=== PATIENT | female | born 1945 | race Caucasian/White ===

== ENCOUNTER → 2018-02-09 14:58 | Outpatient (CLI) | payer OTHER, SELFPAY ==
[2018-02-09 16:13] LABS: Hemoglobin A1C% w Est Avg Glu 6.8 % (4.0-6.0)
== END ==
PROVIDERS: PCP Internal Medicine; Visit Provider Internal Medicine
DX: E11.9 Type 2 diabetes mellitus without complications (principal)
CPT/HCPCS: 36415; 83036

== ENCOUNTER → 2018-05-16 07:50 | Outpatient (CLI) | payer OTHER, SELFPAY ==
[2018-05-16 08:28] LABS: Hemoglobin A1C% w Est Avg Glu 7.1 % (4.0-6.0)
[2018-05-16 08:46] LABS: BUN Creatinine Ratio 26.7 (6-22); Blood Urea Nitrogen 32 mg/dL (7-17); Calcium 9.3 mg/dL (8.4-10.2); Carbon Dioxide 35 mmol/L (22-32); Chloride 102 mmol/L (98-107); Estimated Glomerular Filt Rate 43.9 mL/min (>60); Glucose 133 mg/dL (80-110); HEMOLYSIS < 15 (0-50); Potassium 3.7 mmol/L (3.4-5.1); Sodium 144 mmol/L (137-145)
== END ==
PROVIDERS: PCP Internal Medicine; Visit Provider Internal Medicine
DX: E11.9 Type 2 diabetes mellitus without complications (principal)
CPT/HCPCS: 36415; 80048; 83036

== ENCOUNTER → 2018-08-21 08:26 | Outpatient (CLI) | payer OTHER, SELFPAY ==
--- NOTE | 2018-08-21 | DI.RAD.S_ITS ---
PROCEDURE: XR SHOULDER LT MIN 2V INDICATIONS: Primary osteoarthritis, left shoulder TECHNIQUE: 3 views of the shoulder were acquired. COMPAR[place] [facility] [place]IL[place], 03/11/2008, 11:19. FINDINGS: Bones: No fractures or dislocations. No suspicious bony lesions. Visualized ribs appear intact. Borderline widening of the acromio clavicular joint space, age-indeterminate Mild left glenohumeral and acromioclavicular joint degeneration Soft tissues: No suspicious soft tissue calcifications. IMPRESSION: Mild left shoulder joint degeneration, grossly unchanged since 03/11/08. Borderline widened appearance of the acromioclavicular joint, technically age-indeterminate finding in the absence of more recent prior studies. Dictated by: Sumit Burt M.D. on 08/21/2018 at 9:16 Approved by: Sumit Burt M.D. on 08/21/2018 at 9:23
== END ==
PROVIDERS: PCP Internal Medicine; Visit Provider Physician Assistant
DX: M19.012 Primary osteoarthritis, left shoulder (principal)
CPT/HCPCS: 73030

== ENCOUNTER → 2018-08-28 07:32 | Outpatient (CLI) | payer OTHER, SELFPAY ==
[2018-08-28 08:54] LABS: Add Manual Diff / Slide Review NO; Basophils Percent Auto 0.8 % (0-2); Eosinophils Percent Auto 6.2 % (2-4); Hematocrit 37.6 % (36-46); Hemoglobin 12.2 g/dL (12.0-16.0); Lymphocytes Percent Auto 36.9 % (25-40); Mean Corpuscular HGB Conc 32.3 % (30-36); Mean Corpuscular Hemoglobin 28.7 PG (26-34); Mean Corpuscular Volume 88.9 fL (80-100); Monocytes Percent Auto 5.2 % (3-14); Neutrophils Absolute Auto 4900 /uL (1500-7000); Neutrophils Percent Auto 50.9 % (50-75); Platelet Count 369 X10^3/uL (150-400); Red Blood Cell Count 4.23 X10^6/uL (4.0-5.2); Red Cell Distribution Width 15.5 % (11.6-14.8); White Blood Cell Count 9.6 X10^3/uL (4.5-11.0)
[2018-08-28 09:08] LABS: Alanine Aminotransferase 26 IU/L (9-52); Albumin 4.1 g/dL (3.5-5.0); Albumin Globulin Ratio 1.2 (1.0-2.8); Alkaline Phosphatase 99 U/L (38-126); Aspartate Aminotransferase 25 IU/L (14-36); BUN Creatinine Ratio 26.2 (6-22); Bilirubin Total 0.4 mg/dL (0.2-1.3); Blood Urea Nitrogen 34 mg/dL (7-17); Calcium 9.6 mg/dL (8.4-10.2); Carbon Dioxide 31 mmol/L (22-32); Chloride 99 mmol/L (98-107); Cholesterol 158 mg/dL (140-199); Globulin 3.4 g/dL (1.7-4.1); Glucose 120 mg/dL (80-110); HDL Cholesterol 49 mg/dL (40-60); HEMOLYSIS < 15 (0-50); LDL Cholesterol Calculated 78 mg/dL (<100); Potassium 3.6 mmol/L (3.4-5.1); Sodium 140 mmol/L (137-145); Total Protein 7.5 g/dL (6.3-8.2); Triglycerides 157 mg/dL (35-150)
[2018-08-28 09:19] LABS: Hemoglobin A1C% w Est Avg Glu 7.2 % (4.0-6.0)
== END ==
PROVIDERS: PCP Physician Assistant; Visit Provider Physician Assistant
DX: E11.9 Type 2 diabetes mellitus without complications (principal); E78.5 Hyperlipidemia, unspecified
CPT/HCPCS: 36415; 80053; 80061; 83036; 85025

== ENCOUNTER 2020-05-09 18:38 | Emergency (ER) | payer OTHER, SELFPAY ==
[2020-05-09 18:44] VITALS: BP 146/65; PULSE 69; RESP 12; TEMP 36.7; O2SAT 97
--- NOTE | 2020-05-09 20:20 | PC.NURSE ---
Pt reports has history of vernon fundoplication, States unable to throw up food. States when she throws up, only throws up mucous.
[2020-05-09 21:45] VITALS: BP 132/63; PULSE 66; RESP 18; O2SAT 97
--- NOTE | 2020-05-09 21:52 | ED_ITS ---
HPI - Nausea/Vomiting/Diarrhea General Chief complaint: Nausea/Vomiting/Diarrhea Stated complaint: nausea, vomiting, fatigued Time Seen by Provider: 05/09/20 20:35 Source: patient and family Mode of arrival: Wheelchair History of Present Illness HPI Narrative: Patient here with daughter. Complaints 2 months of epigastric sternal discomfort with nausea and mucus emesis. Patient with history of Joshua procedure 15 years ago. Recent weight loss occurred in the past 3 or 4 months. Unable to tolerate p.o. as well as she used to in the past 2 months. Discomfort is burning pain. Worse with laying flat or eating. Denies any exertional chest pain or dyspnea. Patient is a retired geriatric nurse. She does not feel this is her heart causing the problem. 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 Her surgeon has , no current surgeon for regular visits. Primary care is in [place]. Patient has been taking daughters Zofran ODT with significant relief of nausea in the past 6 days. No urinary complaints. Patient is not on any acid reducers/antacid. Followed by Nephrology and [facility] Related Data Home Medications Medication Instructions Recorded Confirmed ALBUTEROL SULFATE (Ventolin / 2 puff INH Q4H PRN #0 09/01/10 Proventil) POTASSIUM CHLORIDE (K-Dur) 20 meq PO BID #0 09/01/10 [CO-Q-1O] 100 mg PO Q DAY #0 09/01/10 [LIDEX OINTMENT] 0.05 % TOPICAL BIDP #0 09/01/10 ALLOPURINOL 300 mg PO BID #0 10/29/10 CA PANTOTHENATE/FOLIC ACID/VIT 1 tab PO QDAY #0 10/07/11 (MULTIVITAMIN) VITAMIN D (Vitamin D3) 1,000 unit PO BID #0 10/07/11 [PREVASTATIN] 20 mg PO Q DAY #0 10/07/11 estradiol [Estrace] 1 mg PO Q DAY #0 10/07/11 furosemide 160 mg PO BIDD #0 10/07/11 insulin aspart U-100 [Novolog 8 unit #0 10/07/11 U-100 Insulin aspart] insulin detemir U-100 [Levemir 0 unit SQ BID #0 10/07/11 U-100 Insulin] lorazepam 0.5 mg PO BID #0 10/07/11 valsartan [Diovan] 320 mg PO Q DAY #0 10/07/11 metolazone 10 mg PO PRN #0 11/03/11 omeprazole 40 mg PO BID #0 11/03/11 Previous Rx's Medication Instructions Recorded [Calcium Citrate] 630 mg PO Q DAY #0 09/01/10 Allergies Allergy/AdvReac Type Severity Reaction Status Date / Time bacitracin Allergy Mild RASH Unverified 05/09/20 18:48 [From NEOSPORIN BLISTERS ([id number])] chlorthalidone Allergy Mild RED RASH Unverified 05/09/20 18:48 [CHLORTHALIDONE] hydroxyzine [HYDROXYZINE] Allergy Mild RESP ARREST Unverified 05/09/20 18:48 iodine [IODINE] Allergy Mild IV Unverified 05/09/20 18:48 CONTRAST-RESP ARREST neomycin Allergy Mild RASH Unverified 05/09/20 18:48 [From NEOSPORIN BLISTERS ([id number])] polymyxin B Allergy Mild RASH Unverified 05/09/20 18:48 [From NEOSPORIN BLISTERS ([id number])] PAPER TAPE Allergy Mild BLISTERS Uncoded 05/09/20 18:48 RASH Review of Systems Review of Systems Narrative: GENERAL: Denies chills, fatigue, malaise, fever, sweats. HEENT: Denies sinus pain, ear pain, sore throat, difficulty swallowing, dizziness. RESPIRATORY: Denies dyspnea, cough, wheezing, hemoptysis, sputum. CARDIOVASCULAR: Denies chest pain, palpitations, orthopnea, edema, GASTROINTESTINAL: Complains of nausea, vomiting, abdominal pain, denies diarrhea, constipation, melena. : Denies dysuria, frequency, incontinence, hematuria, urinary retention. MUSCULOSKELETAL: denies weakness, joint pain, or bony pain SKIN: Denies rash, skin lesions NEUROLOGIC: Denies weakness, headache, numbness, change in speech, confusion, seizures, incoordination. PSYCHIATRIC: No concerning psychosocial issues. ROS Unobtainable: All systems reviewed & are unremarkable except as noted in HPI and below Patient History Social History Smoking Status: Former smoker Smoking Status: Former smoker Substance Use Type: marijuana Exam Narrative Exam Narrative: GENERAL: patient appears stated age. Well-nourished, well- developed patient, in no distress, not toxic HEAD: Atraumatic. Normocephalic. EYES: Pupils equal round and reactive. Extraocular motions intact. No scleral icterus. No injection or drainage. ENT: Nose without bleeding, purulent drainage. Throat without erythema, tonsillar hypertrophy or exudate. Airway patent. NECK: Trachea midline. Non tender CARDIOVASCULAR: Regular rate and rhythm without murmurs, gallops, or rubs. RESPIRATORY: Clear to auscultation. Breath sounds equal bilaterally. No wheezes, rales, or rhonchi. GASTROINTESTINAL: Abdomen soft, mild tenderness epigastric region, no peritoneal signs, bowel sounds present, nondistended. EXTREMITIES: No edema or joint tenderness. BACK: Nontender without deformity or crepitance. No flank tenderness. NEURO: AOx4. SKIN: No rash or erythema of visible areas PSYCH: Not anxious, is cooperative Initial Vital Signs Initial Vital Signs: Vital Signs Temperature 98.1 F 05/09/20 18:44 Pulse Rate 69 05/09/20 18:44 Respiratory Rate 12 05/09/20 18:44 Blood Pressure 146/65 H 05/09/20 18:44 Pulse Oximetry 97 05/09/20 18:44 Course Orders Ordered: ED Orders 05/09/20 22:03 CT abdomen pelvis wo con Stat 05/09/20 22:30 Complete Blood Count AUTO DIFF Stat Comprehensive Metabolic Panel Stat Lipase Stat 05/10/20 00:41 Troponin & CK Cardiac Panel Stat EKG-12 Lead Stat Discontinued Medications Sodium Chloride (Normal Saline 0.9%) 1,000 mls @ 1,000 mls/hr IV BOLUS ONE Stop: 05/09/20 22:54 Last Infusion: 05/09/20 23:48 Dose: 0 mls/hr Documented by: Admin: 05/09/20 22:51 Dose: 1,000 mls/hr Documented by: JAY Calcium Gluconate 4.65 meq/ (Sodium Chloride) 60 mls @ 180 mls/hr IV NOW ONE Stop: 05/10/20 00:59 Last Infusion: 05/10/20 01:40 Dose: 0 mls/hr Documented by: Admin: 05/10/20 00:57 Dose: 180 mls/hr Documented by: JAY Ondansetron HCl (Zofran) 4 mg IV NOW ONE Stop: 05/09/20 21:56 Last Admin: 05/09/20 22:51 Dose: 4 mg Documented by: JAY Pantoprazole Sodium (Protonix) 40 mg IV NOW ONE Stop: 05/09/20 22:08 Last Admin: 05/09/20 22:50 Dose: 40 mg Documented by: JAY Reevaluation(s) Reevaluation #1: Spoke with patient and daughter. They agree with admission/transfer to [facility] for continuity of care with her concrete puddler dr charlene berger Time: 02:29 Consultations Consultation #1: Spoke with Dr. Quick, hospitalist [facility], will admit Time: 02:30 Vital Signs Vital signs: Vital Signs - 8 hr 05/09/20 21:45 05/09/20 23:48 05/10/20 00:54 Pulse Rate 66 65 71 Respiratory Rate 18 18 Blood Pressure 132/63 121/53 L Pulse Oximetry 97 95 94 05/10/20 01:01 05/10/20 01:02 05/10/20 01:30 Pulse Rate 79 78 70 Respiratory Rate 14 10 L Blood Pressure 130/60 122/58 L Pulse Oximetry 96 96 95 05/10/20 02:00 05/10/20 02:30 Pulse Rate 71 68 Respiratory Rate 17 15 Blood Pressure 113/52 L 117/54 L Pulse Oximetry 96 95 MDM - Nausea/Vomiting/Diarrhea Differential Diagnosis Differential diagnosis: Likely dehydration and other (Bowel obstruction /gastritis/acute renal injury/failure) Lab Data Attestation: I reviewed the patient's lab results. Result diagrams: 05/09/20 22:30 05/09/20 22:30 Labs: Lab Results 05/09/20 05/09/20 05/09/20 Range/Units 22:30 22:30 22:30 WBC 9.9 (4.5-11.0) X10^3/uL RBC 3.52 L (4.0-5.2) X10^6/uL Hgb 10.6 L (12.0-16.0) g/dL Hct 31.7 L (36-46) % MCV 89.8 (80-100) fL MCH 30.2 (26-34) PG MCHC 33.6 (30-36) % RDW 14.5 (11.6-14.8) % Plt Count 335 (150-400) X10^3/uL Neut % (Auto) 68.3 (50-75) % Lymph % (Auto) 23.7 L (25-40) % [place] % (Auto) 5.2 (3-14) % Eos % (Auto) 1.8 L (2-4) % Baso % (Auto) 1.0 (0-2) % Neut # (Auto) 6700 (7268-2623) /uL Lymph # (Auto) 2300 (5629-4387) /uL [place] # (Auto) 500 (0-900) /uL Eos # (Auto) 200 (0-450) /uL Baso # (Auto) 100 (0-100) /uL Sodium 126 L (137-145) mmol/L Potassium 6.3 H* (3.4-5.1) mmol/L Chloride 96 L (98-107) mmol/L Carbon Dioxide 16 L (22-32) mmol/L BUN 157 H* (7-17) mg/dL Creatinine 4.84 H (0.52-1.04) mg/dL Estimated GFR 8.7 L (>60) mL/min BUN/Creatinine Ratio 32.4 H (6-22) Glucose 103 (80-110) mg/dL Calcium 10.4 H (8.4-10.2) mg/dL Total Bilirubin 0.4 (0.2-1.3) mg/dL AST 26 (14-36) IU/L ALT 15 (<35) IU/L Alkaline Phosphatase 65 (38-126) U/L Total Creatine Kinase < 20 L (30-135) U/L CK-MB (CK-2) TNP CK-MB (CK-2) Rel Index TNP Troponin I < 0.012 (0.01-0.034) ng/mL Total Protein 7.8 (6.3-8.2) g/dL Albumin 4.3 (3.5-5.0) g/dL Globulin 3.5 (1.7-4.1) g/dL Albumin/Globulin Ratio 1.2 (1.0-2.8) Lipase 296 (23-300) U/L Urine Dip Bedside Urine Glucose Negative Bedside Urine Bilirubin - Negative Bedside Urine Ketone - Negative Urine Specific [place] 1.015 Bedside Urine Occult Blood - Negative Bedside Urine pH 5.5 Bedside Urine Protein - Negative Bedside Urine Urobilinogen - Negative Bedside Urine Nitrite - Negative Bedside Urine Leukocytes - Negative Esterase Imaging Data CT scan - abdomen/pelvis: Radiologist's Impression: CT scan shows no acute intra-abdominal or pelvic findings. No appendicitis. No bowel obstruction. No renal obstruction. Right lower lobe 5 mm pulmonary nodule. Consider 12 month follow-up ECG Data Attestation: I personally reviewed and interpreted this ECG as follows: Interpretation: Normal sinus rhythm. Normal EKG. Ventricular rate 73. No ST elevation or depression or peaked T-waves MDM Narrative Medical decision making narrative: Pain is reproducible and clinically acid reflux as gastritis/esophagitis. No concrete puddler surface at this facility. Will need to transfer to [facility]. Patient nephrology does go to [place]. Significant changes in renal function/hyperkalemia as well as increased BUN and creatinine and decrease in GFR, no insulin at this time for hyperkalemia, will try IV fluids and hydration and recheck potassium. Patient has no arrhythmia. No peaked T-waves on EKG. Discharge Plan Departure Patient Disposition: [facility] Clinical Impression: Acute hyperkalemia Acute renal failure Qualifiers: Acute renal failure type: unspecified Qualified Code(s): N17.9 - Acute kidney failure, unspecified Discharge Date/Time: 05/10/20 03:35 Prescriptions: No Action [Calcium Citrate] 630 mg PO Q DAY Qty: 0 RF: 0 [CO-Q-1O] 100 mg PO Q DAY Qty: 0 RF: 0 [LIDEX OINTMENT] 0.05 % Topical BIDP Qty: 0 RF: 0 POTASSIUM CHLORIDE (K-Dur) 20 meq PO BID Qty: 0 RF: 0 ALBUTEROL SULFATE (Ventolin / Proventil) 2 puff INH Q4H PRN Qty: 0 RF: 0 ALLOPURINOL 300 mg PO BID Qty: 0 RF: 0 insulin detemir U-100 [Levemir U-100 Insulin] 100 UNIT/1 ML solution 0 unit SQ BID Qty: 0 RF: 0 insulin aspart U-100 [Novolog U-100 Insulin aspart] 100 UNIT/1 ML solution 8 unit Qty: 0 RF: 0 furosemide 80 MG tablet 160 mg PO BIDD Qty: 0 RF: 0 [PREVASTATIN] 20 mg PO Q DAY Qty: 0 RF: 0 valsartan [Diovan] 80 MG tablet 320 mg PO Q DAY Qty: 0 RF: 0 estradiol [Estrace] 1 MG tablet 1 mg PO Q DAY Qty: 0 RF: 0 lorazepam 0.5 MG tablet 0.5 mg PO BID Qty: 0 RF: 0 VITAMIN D (Vitamin D3) 1,000 unit PO BID Qty: 0 RF: 0 CA PANTOTHENATE/FOLIC ACID/VIT (MULTIVITAMIN) 1 tab PO QDAY Qty: 0 RF: 0 omeprazole 40 MG capsule,delayed release(DR/EC) 40 mg PO BID Qty: 0 RF: 0 metolazone 10 MG tablet 10 mg PO PRN Qty: 0 RF: 0 Referrals: Lynnette Nichole PA-C [Primary Care Provider] -
--- NOTE | 2020-05-09 22:03 | DI.CT.S_ITS ---
PROCEDURE: CT ABDOMEN PELVIS WO CON INDICATIONS: Epigastric pain TECHNIQUE: After the administration of oral contrast, 5 mm thick sections acquired from the diaphragms to the symphysis. 5 mm coronal and sagittal reformats were performed. For radiation dose reduction, the following was used: automated exposure control, adjustment of mA and/or kV according to patient size. COMPARISON: [facility], CT, ABDOMEN/PELVIS WITHOUT CONTRAST, 10/30/2010, 9:24. FINDINGS: Image quality: Excellent. ABDOMEN: Lung bases: Approximately 4 mm pulmonary nodule in the peripheral right lower lobe on series 3, image 13 is unchanged from 2011 comparison. Lung bases are otherwise clear. Heart size is normal. Solid organs: Liver is normal in size. There are simple cysts adjacent to the liver which are unchanged in size from 2011 exam. Gallbladder is unremarkable. Pancreas is normal in unenhanced appearance. Spleen is normal in size. No adrenal nodules. Both kidneys are normal in size, without hydronephrosis or nephrolithiasis. Peritoneum and bowel: Bowel loops demonstrate normal wall thickness and caliber. No free fluid or air. Appendix is normal. Nodes and vessels: No retroperitoneal or mesenteric adenopathy by size criteria. Aorta and inferior vena cava are normal in size. Miscellaneous: No ventral hernias. PELVIS: Genitourinary: Bladder wall thickness is normal. Miscellaneous: No inguinal hernias or adenopathy. Bones: No suspicious bony lesions. No vertebral body compression fractures. IMPRESSION: No acute finding. No significant change from preliminary report. Dictated by: Jose Antonio Sheppard M.D. on 05/10/2020 at 7:02 Approved by: Jose Antonio Sheppard M.D. on 05/10/2020 at 7:04
[2020-05-09 22:36] LABS: Add Manual Diff / Slide Review NO; Basophils Absolute Auto 100 /uL (0-100); Eosinophils Absolute Auto 200 /uL (0-450); Eosinophils Percent Auto 1.8 % (2-4); Hematocrit 31.7 % (36-46); Hemoglobin 10.6 g/dL (12.0-16.0); Lymphocytes Absolute Auto 2300 /uL (1100-4500); Lymphocytes Percent Auto 23.7 % (25-40); Mean Corpuscular HGB Conc 33.6 % (30-36); Mean Corpuscular Hemoglobin 30.2 PG (26-34); Mean Corpuscular Volume 89.8 fL (80-100); Monocytes Absolute Auto 500 /uL (0-900); Monocytes Percent Auto 5.2 % (3-14); Neutrophils Absolute Auto 6700 /uL (1500-7000); Neutrophils Percent Auto 68.3 % (50-75); Platelet Count 335 X10^3/uL (150-400); Red Blood Cell Count 3.52 X10^6/uL (4.0-5.2); Red Cell Distribution Width 14.5 % (11.6-14.8); White Blood Cell Count 9.9 X10^3/uL (4.5-11.0)
[2020-05-09 22:48] LABS: Alanine Aminotransferase 15 IU/L (<35); Albumin 4.3 g/dL (3.5-5.0); Albumin Globulin Ratio 1.2 (1.0-2.8); Alkaline Phosphatase 65 U/L (38-126); Aspartate Aminotransferase 26 IU/L (14-36); Bilirubin Total 0.4 mg/dL (0.2-1.3); Calcium 10.4 mg/dL (8.4-10.2); Carbon Dioxide 16 mmol/L (22-32); Chloride 96 mmol/L (98-107); Estimated Glomerular Filt Rate 8.7 mL/min (>60); Globulin 3.5 g/dL (1.7-4.1); Glucose 103 mg/dL (80-110); HEMOLYSIS < 15 (0-50); Lipase 296 U/L (23-300); Sodium 126 mmol/L (137-145); Total Protein 7.8 g/dL (6.3-8.2)
[2020-05-09] MEDS: PANTOPRAZOLE 40 MG VIAL IV (22:50)
[2020-05-09] MEDS: SODIUM CHLORIDE 0.9% 1,000 ML 1000 ML IV (22:51)
[2020-05-09] MEDS: ONDANSETRON 4 MG/2 ML INJ IV (22:51)
[2020-05-09 22:56] LABS: BUN Creatinine Ratio 32.4 (6-22)
[2020-05-09 22:59] LABS: Blood Urea Nitrogen 157 mg/dL (7-17); Potassium 6.3 mmol/L (3.4-5.1)
[2020-05-09 23:48] VITALS: BP 121/53; PULSE 65; RESP 18; O2SAT 95
[2020-05-10 00:54] VITALS: PULSE 71; O2SAT 94
[2020-05-10 00:55] LABS: Creatine Kinase < 20 U/L (30-135)
[2020-05-10] MEDS: CALCIUM GLUCONATE 4.65 MEQ in SODIUM CHLORIDE 0.9% 50 ML 180 ML IV (00:57)
[2020-05-10 01:01] VITALS: PULSE 79; O2SAT 96
[2020-05-10 01:02] VITALS: BP 130/60; PULSE 78; RESP 14; O2SAT 96
[2020-05-10 01:08] LABS: Troponin I < 0.012 ng/mL (0.01-0.034)
[2020-05-10 01:30] VITALS: BP 122/58; PULSE 70; RESP 10; O2SAT 95
[2020-05-10 02:00] VITALS: BP 113/52; PULSE 71; RESP 17; O2SAT 96
[2020-05-10 02:30] VITALS: BP 117/54; PULSE 68; RESP 15; O2SAT 95
== END 2020-05-10 03:35 | disposition short-term general hospital (02) ==
PROVIDERS: Emergency Provider Emergency Medicine; PCP Physician Assistant
DX: E87.5 Hyperkalemia (principal); N17.9 Acute kidney failure, unspecified; R11.2 Nausea with vomiting, unspecified
CPT/HCPCS: 36415; 74176; 80053; 81003; 82550; 83690; 84484; 85025; 93005; 93010; 96361; 96365; 96375; 99284; 99285; C9113; J0610; J2405

== ENCOUNTER → 2020-06-26 16:59 | Outpatient (CLI) | payer OTHER, SELFPAY ==
[2020-06-26 17:48] LABS: Blood Urea Nitrogen 28 mg/dL (7-17); Calcium 9.3 mg/dL (8.4-10.2); Carbon Dioxide 30 mmol/L (22-32); Chloride 104 mmol/L (98-107); Estimated Glomerular Filt Rate 47.3 mL/min (>60); Glucose 159 mg/dL (80-110); HEMOLYSIS < 15 (0-50); Magnesium 1.8 mg/dL (1.6-2.3); Sodium 136 mmol/L (137-145)
== END ==
PROVIDERS: PCP Physician Assistant; Referring Provider Internal Medicine; Visit Provider Internal Medicine
DX: N18.32 Chronic kidney disease, stage 3b (principal); E83.42 Hypomagnesemia
CPT/HCPCS: 36415; 80048; 83735

== ENCOUNTER → 2020-08-07 16:13 | Outpatient (CLI) | payer OTHER, SELFPAY ==
[2020-08-07 17:26] LABS: Cholesterol 153 mg/dL (140-199); HDL Cholesterol 51 mg/dL (40-60); LDL Cholesterol Calculated 80 mg/dL (<100); Triglycerides 110 mg/dL (35-150)
[2020-08-07 17:58] LABS: TSH w/ Reflex to FT4 0.62 uIU/mL (0.47-4.68)
[2020-08-07 20:08] LABS: Hemoglobin A1C% w Est Avg Glu 6.6 % (4.0-6.0)
== END ==
PROVIDERS: PCP Physician Assistant; Referring Provider Family Medicine; Visit Provider Family Medicine
DX: Z00.00 Encounter for general adult medical examination without abnormal findings (principal); E11.21 Type 2 diabetes mellitus with diabetic nephropathy; N18.32 Chronic kidney disease, stage 3b; F41.9 Anxiety disorder, unspecified; Z79.4 Long term (current) use of insulin
CPT/HCPCS: 36415; 80061; 83036; 84443

== ENCOUNTER → 2020-08-26 13:16 | Outpatient (CLI) | payer OTHER, SELFPAY ==
[2020-08-26 13:25] LABS: Bacteria Urine None Seen; RBC Urine None Seen (0-5/HPF); WBC Urine None Seen (0-5/HPF)
[2020-08-26 15:01] LABS: Add Manual Diff / Slide Review NO; Basophils Absolute Auto 100 /uL (0-100); Basophils Percent Auto 0.9 % (0-2); Eosinophils Absolute Auto 400 /uL (0-450); Hematocrit 36.3 % (36-46); Hemoglobin 11.9 g/dL (12.0-16.0); Lymphocytes Absolute Auto 2000 /uL (1100-4500); Mean Corpuscular HGB Conc 32.8 % (30-36); Mean Corpuscular Volume 88.3 fL (80-100); Monocytes Absolute Auto 800 /uL (0-900); Monocytes Percent Auto 9.2 % (3-14); Neutrophils Absolute Auto 5800 /uL (1500-7000); Neutrophils Percent Auto 63.9 % (50-75); Platelet Count 368 X10^3/uL (150-400); Red Blood Cell Count 4.11 X10^6/uL (4.0-5.2); Red Cell Distribution Width 14.7 % (11.6-14.8); White Blood Cell Count 9.1 X10^3/uL (4.5-11.0)
[2020-08-26 15:03] LABS: Appearance Urine UA CLEAR; Bilirubin Urine UA NEGATIVE (NEGATIVE); Color Urine UA YELLOW; Glucose Urine UA NEGATIVE (Negative); Ketones Urine UA NEGATIVE (NEGATIVE); Leukocyte Esterase Urine UA NEGATIVE (NEGATIVE); Nitrite Urine UA NEGATIVE (Negative); Occult Blood Urine UA NEGATIVE (Negative); Protein Urine UA NEGATIVE (Negative); Urobilinogen Urine UA 0.2 E.U./dL (0.2)
[2020-08-26 15:06] LABS: Hemoglobin A1C% w Est Avg Glu 6.9 % (4.0-6.0); pH Urine UA 5.5 (4.5-8.0)
[2020-08-26 15:10] LABS: Culture Indicated Urine Cult Not Indicated; Urine Comments Microscopic Normal
[2020-08-26 15:14] LABS: Alanine Aminotransferase 24 IU/L (<35); Albumin Globulin Ratio 1.2 (1.0-2.8); Alkaline Phosphatase 110 U/L (38-126); Aspartate Aminotransferase 35 IU/L (14-36); Bilirubin Total 0.4 mg/dL (0.2-1.3); Blood Urea Nitrogen 35 mg/dL (7-17); Calcium 9.3 mg/dL (8.4-10.2); Carbon Dioxide 35 mmol/L (22-32); Chloride 100 mmol/L (98-107); Estimated Glomerular Filt Rate 46.8 mL/min (>60); Globulin 3.4 g/dL (1.7-4.1); Glucose 113 mg/dL (80-110); HEMOLYSIS < 15 (0-50); Phosphorous 2.9 mg/dL (2.8-4.1); Potassium 4.3 mmol/L (3.4-5.1); Sodium 136 mmol/L (137-145); Total Protein 7.4 g/dL (6.3-8.2); Uric Acid 9.1 mg/dL (2.5-6.2)
[2020-08-26 15:51] LABS: Vitamin D 25 Hydroxy (D3) 52.7 ng/mL (30.0-100.0)
[2020-08-27 07:08] LABS: Parathyroid Hormone Int 90 pg/mL (15-65)
== END ==
PROVIDERS: PCP Physician Assistant; Referring Provider Internal Medicine; Visit Provider Internal Medicine
DX: N18.32 Chronic kidney disease, stage 3b (principal); Z79.4 Long term (current) use of insulin; E11.21 Type 2 diabetes mellitus with diabetic nephropathy
CPT/HCPCS: 36415; 80053; 81001; 82306; 83036; 83970; 84100; 84550; 85025

== ENCOUNTER 2020-11-13 17:43 | Emergency (ER) | payer OTHER, SELFPAY ==
[2020-11-13 17:45] VITALS: BP 190/100; PULSE 72; RESP 14; TEMP 36.7; O2SAT 98
--- NOTE | 2020-11-13 17:50 | DI.RAD.S_ITS ---
PROCEDURE: XR SHOULDER LT MIN 2V INDICATIONS: fall w/ 05/31 pain at shoulder TECHNIQUE: 2 views of the shoulder were acquired. COMPARISON: [facility], [place], XR SHOULDER LT MIN 2V, 08/21/2018, 8:32. FINDINGS: Bones: There is a comminuted, mildly displaced fracture of proximal humeral head and neck with mild angulation. No suspicious bony lesions. Visualized ribs appear intact. Soft tissues: No suspicious soft tissue calcifications. IMPRESSION: Comminuted mildly displaced fracture of the left proximal humeral head and neck. Dictated by: Nagi Charles M.D. on 11/13/2020 at 17:16 Approved by: Nagi Charles M.D. on 11/13/2020 at 17:18
[2020-11-13] MEDS: OXYCODONE/ACETAMINOPHEN 5/325 TABLET 2 TAB PO (17:55)
--- NOTE | 2020-11-13 18:54 | DI.RAD.S_ITS ---
PROCEDURE: XR HUMERUS LT 2V INDICATIONS: humerus fracture per shoulder xray TECHNIQUE: AP and lateral views of the humerus were acquired. COMPARISON: [facility], CR, XR SHOULDER LT MIN 2V, 11/13/2020, 18:00. FINDINGS: Bones: Comminuted fracture of the humeral head and neck. No distal humeral fractures. No suspicious bony lesions. Soft tissues: No suspicious soft tissue calcifications. IMPRESSION: Comminuted fracture of the left humeral head and neck. Dictated by: Gorge Phan M.D. on 11/13/2020 at 19:36 Approved by: Gorge Phan M.D. on 11/13/2020 at 19:36
--- NOTE | 2020-11-13 19:14 | ED.UPPEXIN ---
HPI - Extremity Injury (Upper) <NITESH Gillis - Last Filed: 11/13/20 21:35> General Chief Complaint: Extremity Injury, Upper Stated Complaint: left shoulder injury s/p fall Time Seen by Provider: 11/13/20 18:47 Source: patient Mode of arrival: Wheelchair Limitations: no limitations History of Present Illness HPI narrative: This is a 75 year female, former smoker, who presents to ED with daughter with chief complain of left upper arm pain. Patient with medical history significant for osteoporosis, diabetes, chronic kidney disease, COPD and is not on blood thinner but takes baby aspirin daily. Patient reports she was cleaning out closet this afternoon and accidentally tripped on the floor and hit a book case while coming straight down on her left elbow while it was flexed in L shape. Patient denies hitting her head or injuries to other areas. Patient reports pain is on left upper arm and shoulder region. Patient denies previous history of injury or surgery to affected arm. Patient reports intact sensation and is able to move her wrist, and fingers without difficulty. Daughter states patient has Sheridan readily available but has not been using it which was prescribed by her PCP. Patient was medicated with 2 tabs of Percocet after the triage. Related Data Home Medications Medication Instructions Recorded Confirmed ALBUTEROL SULFATE (Ventolin / 2 puff INH Q4H PRN #0 09/01/10 Proventil) POTASSIUM CHLORIDE (K-Dur) 20 meq PO BID #0 09/01/10 [CO-Q-1O] 100 mg PO Q DAY #0 09/01/10 [LIDEX OINTMENT] 0.05 % TOPICAL BIDP #0 09/01/10 ALLOPURINOL 300 mg PO BID #0 10/29/10 CA PANTOTHENATE/FOLIC ACID/VIT 1 tab PO QDAY #0 10/07/11 (MULTIVITAMIN) VITAMIN D (Vitamin D3) 1,000 unit PO BID #0 10/07/11 [PREVASTATIN] 20 mg PO Q DAY #0 10/07/11 estradiol [Estrace] 1 mg PO Q DAY #0 10/07/11 furosemide 160 mg PO BIDD #0 10/07/11 insulin aspart U-100 [Novolog 8 unit #0 10/07/11 U-100 Insulin aspart] insulin detemir U-100 [Levemir 0 unit SQ BID #0 10/07/11 U-100 Insulin] lorazepam 0.5 mg PO BID #0 10/07/11 valsartan [Diovan] 320 mg PO Q DAY #0 10/07/11 metolazone 10 mg PO PRN #0 11/03/11 omeprazole 40 mg PO BID #0 11/03/11 Previous Rx's Medication Instructions Recorded [Calcium Citrate] 630 mg PO Q DAY #0 09/01/10 oxycodone-acetaminophen [Percocet] 1 tab PO Q6H PRN #20 tab 11/13/20 Allergies Allergy/AdvReac Type Severity Reaction Status Date / Time bacitracin Allergy Mild RASH Verified 11/13/20 17:54 [From NEOSPORIN BLISTERS ([id number])] chlorthalidone Allergy Mild RED RASH Verified 11/13/20 17:54 [CHLORTHALIDONE] hydroxyzine [HYDROXYZINE] Allergy Mild RESP ARREST Verified 11/13/20 17:54 iodine [IODINE] Allergy Mild IV Verified 11/13/20 17:54 CONTRAST-RESP ARREST neomycin Allergy Mild RASH Verified 11/13/20 17:54 [From NEOSPORIN BLISTERS ([id number])] polymyxin B Allergy Mild RASH Verified 11/13/20 17:54 [From NEOSPORIN BLISTERS ([id number])] PAPER TAPE Allergy Mild BLISTERS Uncoded 05/09/20 18:48 RASH Review of Systems <NITESH Gillis - Last Filed: 11/13/20 21:35> Review of Systems Narrative: General: Denies fever, chills, fatigue, malaise, sweats. Respiratory: Denies dyspnea, cough, wheezing, hemoptysis, sputum. Cardiovascular: Denies chest pain, palpitations, orthopnea, edema. Musculoskeletal: See HPI Skin: Denies rash, skin lesions, or other. Neurologic: Denies weakness, headache, numbness, change in speech, confusion, seizures, incoordination. Patient History <NITESH Gillis - Last Filed: 11/13/20 21:35> Medical History Diabetes Surgical History H/O shoulder surgery Social History Smoking Status: Former smoker Smoking Status: Former smoker alcohol intake frequency: 0-2 drinks per day Substance Use Type: marijuana Exam <NITESH Gillis - Last Filed: 11/13/20 21:35> Narrative Exam Narrative: General appearance: well developed, well nourished, in moderate distress from pain even with little movements. Head: normocephalic, atraumatic, no scalp lesions, non-tender. ENT: Hearing grossly intact. Airway patent. Neck/Thyroid: neck supple, full range of motion, no visible masses or meningeal signs. No JVD, non-tender without lymphadenopathy. Skin: no suspicious rashes, lesions over visible areas. Warm and dry and appropriate color for ethnicity. Heart: no clubbing, no cyanosis, no edema. Lungs: Breathing even and unlabored. No stridor. No accessory muscles used. Able to speak in full sentences. Chest: normal shape and expansion. Abdomen: non-obese, non-distended. Neurologic: alert and oriented. Cognitive exam, H[employer] and PNS grossly intact on informal exam. Psych: good eye contact, normal affect. Initial Vital Signs Initial Vital Signs: Vital Signs Temperature 98.1 F 11/13/20 17:45 Pulse Rate 72 11/13/20 17:45 Respiratory Rate 14 11/13/20 17:45 Blood Pressure 190/100 H 11/13/20 17:45 Pulse Oximetry 98 11/13/20 17:45 Extrem Left upper extremity: shoulder/upper arm Details: tenderness Location: of the proximal humerus, swelling Location: of the proximal humerus and abnormal ROM Details: pain with active ROM and pain with passive ROM; no lacerations, no ecchymosis and no crepitus, elbow/forearm Details: normal to inspection and normal ROM; no tenderness and no swelling, wrist Details: normal to inspection; no tenderness and no swelling and hand Details: normal to inspection, normal capillary refill, neuromotor exam normal, neurosensory exam normal, vascular exam Details: radial pulse present and normal capillary refill, normal ROM of fingers and no swelling <Anand Zheng DO - Last Filed: 11/13/20 22:16> Initial Vital Signs Initial Vital Signs: Vital Signs Temperature 98.1 F 11/13/20 17:45 Pulse Rate 72 11/13/20 17:45 Respiratory Rate 14 11/13/20 17:45 Blood Pressure 190/100 H 11/13/20 17:45 Pulse Oximetry 98 11/13/20 17:45 Procedures <NITESH Gillis - Last Filed: 11/13/20 21:35> Orthopedic Splinting/Casting Injury #1: Side: left Upper Extremity Injury Location: upper arm Upper Extremity Immobilizer: sling/shoulder immobilizer Post splinting neuro exam: intact Post splinting vascular exam: intact Placed by: Nursing Scores <JIMBO GillisP - Last Filed: 11/13/20 21:35> GCS Li coma scale eye opening: Spontaneous [place] coma scale verbal response: Orientated [place] coma scale motor response: Obey commands [place] coma scale total score: 15 Course <NITESH Gillis - Last Filed: 11/13/20 21:35> Orders Ordered: ED Orders 11/13/20 17:50 XR shoulder LT min 2V Stat 11/13/20 18:54 XR humerus LT 2V Stat Discontinued Medications Hydromorphone HCl (Hydromorphone 1 Mg Inj) 0.5 mg IM NOW ONE Stop: 11/13/20 19:56 Last Admin: 11/13/20 20:01 Dose: 0.5 mg Documented by: NEFTALY Oxycodone/Acetaminophen (Oxycodone/Acetaminophen 5/325 Tablet) 2 tab PO NOW ONE Stop: 11/13/20 17:53 Last Admin: 11/13/20 17:55 Dose: 2 tab Documented by: ZACHARY Oxycodone/Acetaminophen (Oxycodone/Apap 5/325 Prepack) 1 bottle MISC SEEINSTR ONE Stop: 11/13/20 20:14 Vital Signs Vital signs: Vital Signs - 8 hr 11/13/20 17:45 11/13/20 20:33 Temperature 98.1 F Pulse Rate 72 88 Respiratory Rate 14 22 Blood Pressure 190/100 H 185/91 H Pulse Oximetry 98 98 <Anand Zheng DO - Last Filed: 11/13/20 22:16> Orders Ordered: ED Orders 11/13/20 17:50 XR shoulder LT min 2V Stat 11/13/20 18:54 XR humerus LT 2V Stat Discontinued Medications Hydromorphone HCl (Hydromorphone 1 Mg Inj) 0.5 mg IM NOW ONE Stop: 11/13/20 19:56 Last Admin: 11/13/20 20:01 Dose: 0.5 mg Documented by: NEFTALY Oxycodone/Acetaminophen (Oxycodone/Acetaminophen 5/325 Tablet) 2 tab PO NOW ONE Stop: 11/13/20 17:53 Last Admin: 11/13/20 17:55 Dose: 2 tab Documented by: ZACHARY Oxycodone/Acetaminophen (Oxycodone/Apap 5/325 Prepack) 1 bottle MISC SEEINSTR ONE Stop: 11/13/20 20:14 Vital Signs Vital signs: Vital Signs - 8 hr 11/13/20 17:45 11/13/20 20:33 Temperature 98.1 F Pulse Rate 72 88 Respiratory Rate 14 22 Blood Pressure 190/100 H 185/91 H Pulse Oximetry 98 98 MDM - Extremity Injury (Upper) <NITESH Gillis - Last Filed: 11/13/20 21:35> Differential Diagnosis Differential diagnosis: Likely dislocation of shoulder, fracture of humerus and other (Fracture of elbow) Medical Records Attestation: I reviewed the patient's medical records. Imaging Data XR-Shoulder LT: Radiologist's Impression: [address] [id number] ReportSigned Patient: Bruce Ruff#: [id number]: 4Acct:[id number]/Sex: 75 / FDate of Service: 11/13/20Loc: EDAccession Number: [id number] Procedure: XR shoulder LT min 2V Ordering Provider: Pilar Dickinson MD PROCEDURE: XR SHOULDER LT MIN 2V INDICATIONS: fall w/ 05/31 pain at shoulder TECHNIQUE: 2 views of the shoulder were acquired. COMPARISON: [facility] , XR SHOULDER LT MIN 2V, 08/21/2018, 8:32. FINDINGS: Bones: There is a comminuted, mildly displaced fracture of proximal humeral head and neck with mild angulation. No suspicious bony lesions. Visualized ribs appear intact. Soft tissues: No suspicious soft tissue calcifications. IMPRESSION: Comminuted mildly displaced fracture of the left proximal humeral head and neck. Dictated by: Nagi Charles M.D. on 11/13/2020 at 17:16 Approved by: Nagi Charles M.D. on 11/13/2020 at 17:18 XR-Humerus LT: Radiologist's Impression: [address] [id number] ReportSigned Patient: Bruce RuffR#: [id number]: 4Acct:[id number]/Sex: 75 / FDate of Service: 11/13/20Loc: EDAccession Number: [id number] Procedure: XR humerus LT 2V Ordering Provider: Andrew Feliz PROCEDURE: XR HUMERUS LT 2V INDICATIONS: humerus fracture per shoulder xray TECHNIQUE: AP and lateral views of the humerus were acquired. COMPARISON: [facility], , XR SHOULDER LT MIN 2V, 11/13/2020, 18:00. FINDINGS: Bones: Comminuted fracture of the humeral head and neck. No distal humeral fractures. No suspicious bony lesions. Soft tissues: No suspicious soft tissue calcifications. IMPRESSION: Comminuted fracture of the left humeral head and neck. Dictated by: Gorge Phan M.D. on 11/13/2020 at 19:36 Approved by: Gorge Phan M.D. on 11/13/2020 at 19:36 MDM Narrative Medical decision making narrative: This is a 75 year female who has history of osteoporosis presents to ED with left upper arm pain with limited active and passive range of motion due to pain after she sustained a fall this afternoon from a mechanical fall. Patient has intact distal sensation, mobility to fingers. Pain increases in left upper arm with little movements. There is no skin injury with this. Initially shoulder x-ray was obtained after the triage which showed communicated mildly displaced fracture of left proximal humeral head and neck. Patient reports some discomfort in elbow with palpation but no difficulty with flexion. Concerned for fracture, humerus x-ray was ordered which showed same findings as shoulder x-ray without other acute findings. Patient reports pain marginally improved after 2 tabs of Percocet that was provided after the triage and when reassessed 2 hours after. Patient rated pain as 9/10 from 10/10. Patient medicated with additional 0.5 mg of Dilaudid IM injection prior leaving ED. affected arm stabilized on shoulder immobilization. Patient advised to follow-up with [facility]ist next week. We discussed in detail of narcotic medication precautions along constipation precautions. Patient discharged to home with prepack Percocet and Zofran and additional medication Rx to pharmacy. Return precautions discussed with patient and her daughter, they both verbalized understanding in agreement with treatment plan. Discharge Plan Departure Patient Disposition: Home Clinical Impression: Fracture, humerus closed Qualifiers: Encounter type: initial encounter Humerus Location: surgical neck Fracture morphology: unspecified fracture morphology Fracture alignment: displaced Laterality: left Qualified Code(s): S42.212A - Unspecified displaced fracture of surgical neck of left humerus, initial encounter for closed fracture Instructions: Humeral Shaft Fracture Activity Restrictions/Additional Instructions: You have been diagnosed with [Community mildly displaced fracture of the left proximal humeral head and neck. You were medicated with 2 tabs of oxycodone with marginal improvement and medicated with 0.5 mg of Dilaudi IM for pain management and shoulder immobilizer has been applied]. What to do: *Take your medications as directed. Please take Percocet 1 tab every 6 hours as needed for severe pain. You can use [id number] Tylenol for mild to moderate pain. Oxycodone has 325 mg of Tylenol mixed in a tab and you can add one tab of regular tylenol with this. Please use cool pack on affected site for next couple of days and elevate affected arm during rest. When her taking Percocet, please do not take Sheridan (Hydrocodone) since both are narcotic medications. Please avoid taking Ativan and hydrocodone or Percocet concurrently since this can add sedation. This prescription has been transmitted to [facility] in [place]. *Follow up with your primary care provider/José contreras in 2-3 days, call for an appointment. Let them know you were seen in the ED and that we asked you to be seen in follow up. *Return to ED if you have any new, worsening, or concerning symptoms, such as [worsening pain, tingling/numbness/weakness to affected arm, chest pain, breathing difficulty, unable to tolerate fluids, fever or any acute concerns]. Prescriptions: New oxycodone-acetaminophen [Percocet] 5-325 mg tablet 1 tab PO Q6H PRN (Reason: pain) Qty: 20 RF: 0 No Action [Calcium Citrate] 630 mg PO Q DAY Qty: 0 RF: 0 [CO-Q-1O] 100 mg PO Q DAY Qty: 0 RF: 0 [LIDEX OINTMENT] 0.05 % Topical BIDP Qty: 0 RF: 0 POTASSIUM CHLORIDE (K-Dur) 20 meq PO BID Qty: 0 RF: 0 ALBUTEROL SULFATE (Ventolin / Proventil) 2 puff INH Q4H PRN Qty: 0 RF: 0 ALLOPURINOL 300 mg PO BID Qty: 0 RF: 0 insulin detemir U-100 [Levemir U-100 Insulin] 100 UNIT/1 ML solution 0 unit SQ BID Qty: 0 RF: 0 insulin aspart U-100 [Novolog U-100 Insulin aspart] 100 UNIT/1 ML solution 8 unit Qty: 0 RF: 0 furosemide 80 MG tablet 160 mg PO BIDD Qty: 0 RF: 0 [PREVASTATIN] 20 mg PO Q DAY Qty: 0 RF: 0 valsartan [Diovan] 80 MG tablet 320 mg PO Q DAY Qty: 0 RF: 0 estradiol [Estrace] 1 MG tablet 1 mg PO Q DAY Qty: 0 RF: 0 lorazepam 0.5 MG tablet 0.5 mg PO BID Qty: 0 RF: 0 VITAMIN D (Vitamin D3) 1,000 unit PO BID Qty: 0 RF: 0 CA PANTOTHENATE/FOLIC ACID/VIT (MULTIVITAMIN) 1 tab PO QDAY Qty: 0 RF: 0 omeprazole 40 MG capsule,delayed release(DR/EC) 40 mg PO BID Qty: 0 RF: 0 metolazone 10 MG tablet 10 mg PO PRN Qty: 0 RF: 0 Referrals: [facility] [Provider Group] Lynnette Nichole PA-C [Primary Care Provider] - <Anand Zheng, DO - Last Filed: 11/13/20 22:16> Cosign ED Attending Cosignature Attestation: Dr Zheng Co-Sign Statement: I was available for consultation during this patient's emergency department visit. This chart is signed by myself for administrative purposes only. I did not have direct contact with this patient during this visit. They were seen independently by the APC.
[2020-11-13] MEDS: HYDROMORPHONE 1 MG INJ 0.5 MG IM (20:01)
[2020-11-13 20:33] VITALS: BP 185/91; PULSE 88; RESP 22; O2SAT 98
== END 2020-11-13 20:30 | disposition home or self-care (01) ==
PROVIDERS: Emergency Provider Nurse Practitioner Family; PCP Physician Assistant
DX: S42.212A Unspecified displaced fracture of surgical neck of left humerus, initial encounter for closed fracture (principal); W01.10XA Fall on same level from slipping, tripping and stumbling with subsequent striking against unspecified object, initial encounter; Y92.009 Unspecified place in unspecified non-institutional (private) residence as the place of occurrence of the external cause
CPT/HCPCS: 73030; 73060; 96372; 99283; 99284; J1170

== ENCOUNTER 2020-11-17 15:21 | Observation (INO) | payer OTHER, SELFPAY ==
[2020-11-17] VITALS (14 sets, daily range): BP systolic 131–153; BP diastolic 57–76; PULSE 57–79; RESP 18; TEMP 36.1–36.6; O2SAT 90–95; BMI 39.1
--- NOTE | 2020-11-17 15:47 | DI.CT.S_ITS ---
PROCEDURE: CT HEAD/BRAIN WO CON INDICATIONS: difficulty with speech now resolved TECHNIQUE: Noncontrast 4.5 mm thick angled axial sections acquired from the foramen magnum to the vertex, with coronal and sagittal reformats. For radiation dose reduction, the following was used: automated exposure control, adjustment of mA and/or kV according to patient size. COMPARISON: [facility], CT, HEAD WITHOUT CONTRAST, 06/30/2016, 21:52. FINDINGS: Image quality: Excellent. CSF spaces: Basal cisterns are patent. No extra-axial fluid collections. The ventricles are symmetric in size and shape. Brain: No intracranial bleeds or masses. There is cerebral volume loss for age, with resultant ventricular and sulcal prominence. There are periventricular and deep white matter chronic small vessel ischemic changes. There is intracranial internal carotid artery atherosclerosis. Skull and face: Calvarium and visualized facial bones appear intact, without suspicious lesions. Sinuses: Visualized sinuses and mastoids are clear. IMPRESSION: 1. No acute intracranial process. 2. Moderate atrophy and chronic microvascular ischemic changes. Dictated by: Doretha Sanchez M.D. on 11/17/2020 at 16:03 Approved by: Doretha Sanchez M.D. on 11/17/2020 at 16:03
--- NOTE | 2020-11-17 15:50 | ED.NEUROSD ---
HPI - Neuro Symptoms/Deficit General Chief Complaint: Extremity Injury, Upper Stated Complaint: LEFT SHOULDER IS BROKEN UNABLE TO CARE FOR Time Seen by Provider: 11/17/20 15:23 Source: patient and family Mode of arrival: Family Vehicle Limitations: no limitations History of Present Illness HPI Narrative: Patient is a 75-year-old female who has a history of diabetes, hyperlipidemia, COPD and recent left humeral comminuted fracture presenting with her daughter today for a couple of reasons. 1st daughter noticed at at 10:30 a.m. she had a slight left facial droop and had difficulty getting words out. This lasted for roughly 4 hours will until 1 hour prior to her arrival to to be emergency department. At the symptoms have now completely resolved. She had no other weakness is. She was given pain medication an hour or 2 before her symptoms. Daughters bigger concern is that she cannot care for her mother with a humerus fracture. She states that she is requiring lot of assistance that she is unable to provide. Patient is right-hand dominant and is able to help out with some things but has apparently difficulty ambulating and other problems. They have an appointment tomorrow with Orthopedics. Onset (ago): hour(s) (5) Timing confirmed by: family member Location: speech History of same: No Severity: moderate Relieving factors: time On Anticoagulants: Yes (fish oil and aspirin) Related Data Home Medications Medication Instructions Recorded Confirmed ALBUTEROL SULFATE (Ventolin / 2 puff INH Q4H PRN #0 09/01/10 Proventil) POTASSIUM CHLORIDE (K-Dur) 20 meq PO BID #0 09/01/10 [CO-Q-1O] 100 mg PO Q DAY #0 09/01/10 [LIDEX OINTMENT] 0.05 % TOPICAL BIDP #0 09/01/10 ALLOPURINOL 300 mg PO BID #0 10/29/10 CA PANTOTHENATE/FOLIC ACID/VIT 1 tab PO QDAY #0 10/07/11 (MULTIVITAMIN) VITAMIN D (Vitamin D3) 1,000 unit PO BID #0 10/07/11 [PREVASTATIN] 20 mg PO Q DAY #0 10/07/11 estradiol [Estrace] 1 mg PO Q DAY #0 10/07/11 furosemide 160 mg PO BIDD #0 10/07/11 insulin aspart U-100 [Novolog 8 unit #0 02/16/12 U-100 Insulin aspart] insulin detemir U-100 [Levemir 0 unit SQ BID #0 10/07/11 U-100 Insulin] lorazepam 0.5 mg PO BID #0 10/07/11 valsartan [Diovan] 320 mg PO Q DAY #0 10/07/11 metolazone 10 mg PO PRN #0 11/03/11 omeprazole 40 mg PO BID #0 11/03/11 Previous Rx's Medication Instructions Recorded [Calcium Citrate] 630 mg PO Q DAY #0 09/01/10 oxycodone-acetaminophen [Percocet] 1 tab PO Q6H PRN #20 tab 11/13/20 Allergies Allergy/AdvReac Type Severity Reaction Status Date / Time bacitracin Allergy Mild RASH Verified 11/17/20 15:35 [From NEOSPORIN BLISTERS ([id number])] chlorthalidone Allergy Mild RED RASH Verified 11/17/20 15:35 [CHLORTHALIDONE] hydroxyzine [HYDROXYZINE] Allergy Mild RESP ARREST Verified 11/17/20 15:35 iodine [IODINE] Allergy Mild IV Verified 11/17/20 15:35 CONTRAST-RESP ARREST neomycin Allergy Mild RASH Verified 11/17/20 15:35 [From NEOSPORIN BLISTERS ([id number])] polymyxin B Allergy Mild RASH Verified 11/17/20 15:35 [From NEOSPORIN BLISTERS ([id number])] PAPER TAPE Allergy Mild BLISTERS Uncoded 11/17/20 15:35 RASH Review of Systems Review of Systems ROS Unobtainable: All systems reviewed & are unremarkable except as noted in HPI and below Constitutional Constitutional: Denies chills, Denies fever(s), Denies lethargy and Denies weakness Cardiovascular Cardiovascular: Denies chest pain, Denies irregular heart rhythm, Denies lightheadedness, Denies palpitations, Denies dyspnea, Denies dyspnea on exertion and Denies orthopnea Respiratory Respiratory: Denies cough, Denies dyspnea, Denies dyspnea on exertion and Denies wheezing Gastrointestinal Gastrointestinal: Denies abdominal pain, Denies change in bowel habits, Denies diarrhea, Denies nausea and Denies vomiting Musculoskeletal Musculoskeletal: Reports as per HPI, Reports deformity, Reports arthralgias and Denies numbness Integumentary/Breasts Skin/Breast: Denies pruritus, Denies erythema, Denies rash and Denies wounds Neurologic Neurologic: Reports as per HPI, Reports abnormal speech, Denies numbness, Denies other visual disturbances and Denies weakness Endocrine Endocrine: Denies palpitations Hematologic/Lymphatic On Anticoagulants: Yes (fish oil and aspirin) Allergic/Immunologic Allergic/Immunologic: Denies wheezing Patient History Medical History COPD exacerbation Diabetes Surgical History H/O shoulder surgery Social History Smoking Status: Former smoker Smoking Status: Former smoker alcohol intake frequency: 0-2 drinks per day Substance Use Type: marijuana Exam Initial Vital Signs Initial Vital Signs: Vital Signs Pulse Rate 71 11/17/20 15:30 Pulse Oximetry 93 11/17/20 15:30 GENERAL: Alert pleasant 75-year-old female and in no acute distress. HEENT: Head atraumatic,EOMI, pupils reactive, face symmetric, moist mucous membranes CARDIOVASCULAR: Regular rate and rhythm without murmurs, rubs or gallops. RESPIRATORY: Breath sounds equal bilaterally, no wheezes rales or rhonchi. ABDOMEN: Soft, nontender. Normoactive bowel sounds all 4 quadrants. No guarding or rebound. EXTREMITIES: Normal range of motion, no clubbing or edema. Neurovascularly intact. Left arm in sling with lidocaine patches on contusion noted peripheral distal radial pulse present able to move fingers pain with any movement of sling or palpation to the NEUROLOGICAL: Alert and oriented x4.Normal gait and speech. Cranial nerves II through XII grossly intact. Good [id number], good [id number], strength equal bilaterally, no dysarthria or aphasia, sensation in tact to soft touch bilaterally, no visual changes, no facial droop SKIN: Warm, dry, no laceration, no petechiae, no rashes or lesions. Scores NIH Stroke Scale Level of Conciousness: Alert, keenly responsive Ask month/age: Answers both questions correctly. Open/close eyes, close hand: Performs both tasks correctly Best gaze horizontal: Normal Visual monzon: No visual loss Facial palsy: Normal symetrical movement Left arm drift: Ambutation, joint fusion Right arm drift: No drift for full 10 sec Left leg drift: No drift for full 5 sec Right leg drift: No drift for full 5 sec Limb ataxia: Absent Sensory on face/arms/legs: Normal, no sensory loss Best language: No aphasia, normal Dysarthria: Normal Extinction or inattention: No abnormality Total NIH Stroke scale score: 0 Course Orders Ordered: ED Orders 11/17/20 15:38 COVID19 - ADMIT ([employer] swab/PCR) Stat Complete Blood Count AUTO DIFF Stat Comprehensive Metabolic Panel Stat Partial Thromboplastin Time Stat Procalcitonin Stat Prothrombin Time INR Stat Troponin & CK Cardiac Panel Stat 11/17/20 15:47 CT head/brain wo con Stat 11/17/20 15:49 EKG-12 Lead Stat 11/17/20 15:57 XR shoulder LT min 2V Stat 11/17/20 16:09 XR chest 1V Stat 11/17/20 17:28 Blood Culture Stat 11/17/20 18:38 Lactate (Lactic Acid) Stat Sodium Chloride (Normal Saline 0.9%) 1,000 mls @ 100 mls/hr IV CONT RENETTA Last Infusion: 11/17/20 17:44 Dose: 0 mls/hr Documented by: Admin: 11/17/20 17:22 Dose: 100 mls/hr Documented by: ARY Dextrose ([email or web address]) 1,000 mls @ 150 mls/hr IV CONT RENETTA Last Infusion: 11/17/20 18:30 Dose: 0 mls/hr Documented by: Admin: 11/17/20 17:42 Dose: 150 mls/hr Documented by: ARY Discontinued Medications Dextrose (Dextrose 50 % In Water 25 Gm/50 Ml Syringe) 25 gm IV NOW ONE Stop: 11/17/20 16:09 Last Admin: 11/17/20 16:09 Dose: 25 gm Documented by: ERNESTO Vital Signs Vital signs: Vital Signs - 8 hr 11/17/20 15:30 11/17/20 15:32 11/17/20 16:11 Temperature 97.0 F L Pulse Rate 71 79 66 Respiratory Rate 18 Pulse Oximetry 93 93 90 L 11/17/20 16:30 11/17/20 17:00 Temperature Pulse Rate 68 60 Respiratory Rate Pulse Oximetry 94 95 MDM - Neuro Symptoms/Deficit Lab Data Attestation: I reviewed the patient's lab results. Result diagrams: 11/17/20 15:38 11/17/20 15:38 Labs: Lab Results 11/17/20 11/17/20 11/17/20 Range/Units 15:38 15:38 15:38 WBC 14.1 H (4.5-11.0) X10^3/uL RBC 3.73 L (4.0-5.2) X10^6/uL Hgb 10.7 L (12.0-16.0) g/dL Hct 32.8 L (36-46) % MCV 88.0 (80-100) fL MCH 28.7 (26-34) PG MCHC 32.6 (30-36) % RDW 15.4 H (11.6-14.8) % Plt Count 390 (150-400) X10^3/uL Neut % (Auto) 66.6 (50-75) % Lymph % (Auto) 21.4 L (25-40) % [place] % (Auto) 7.3 (3-14) % Eos % (Auto) 3.7 (2-4) % Baso % (Auto) 1.0 (0-2) % Neut # (Auto) 9400 H (7245-2895) /uL Lymph # (Auto) 3000 (4185-0447) /uL [place] # (Auto) 1000 H (0-900) /uL Eos # (Auto) 500 H (0-450) /uL Baso # (Auto) 100 (0-100) /uL PT (10.1-12.7) SECONDS INR (0.9-1.3) APTT (26.4-36.2) SECONDS Sodium 128 L (137-145) mmol/L Potassium 4.2 (3.4-5.1) mmol/L Chloride 94 L (98-107) mmol/L Carbon Dioxide 28 (22-32) mmol/L BUN 80 H (7-17) mg/dL Creatinine 2.09 H (0.52-1.04) mg/dL Estimated GFR 23.0 L (>60) mL/min BUN/Creatinine Ratio 38.3 H (6-22) Glucose 37 L* (80-110) mg/dL Calcium 9.2 (8.4-10.2) mg/dL Total Bilirubin 0.9 (0.2-1.3) mg/dL AST 33 (14-36) IU/L ALT 22 (<35) IU/L Alkaline Phosphatase 86 (38-126) U/L Total Creatine Kinase < 20 L (30-135) U/L CK-MB (CK-2) TNP CK-MB (CK-2) Rel Index TNP Troponin I < 0.012 (0.01-0.034) ng/mL Total Protein 7.0 (6.3-8.2) g/dL Albumin 3.8 (3.5-5.0) g/dL Globulin 3.2 (1.7-4.1) g/dL Albumin/Globulin Ratio 1.2 (1.0-2.8) Procalcitonin (<0.5) ng/mL SARS-CoV-2 (PCR) Negative (Negative) 11/17/20 11/17/20 Range/Units 15:38 15:38 WBC (4.5-11.0) X10^3/uL RBC (4.0-5.2) X10^6/uL Hgb (12.0-16.0) g/dL Hct (36-46) % MCV (80-100) fL MCH (26-34) PG MCHC (30-36) % RDW (11.6-14.8) % Plt Count (150-400) X10^3/uL Neut % (Auto) (50-75) % Lymph % (Auto) (25-40) % [place] % (Auto) (3-14) % Eos % (Auto) (2-4) % Baso % (Auto) (0-2) % Neut # (Auto) (2287-6839) /uL Lymph # (Auto) (9087-9763) /uL [place] # (Auto) (0-900) /uL Eos # (Auto) (0-450) /uL Baso # (Auto) (0-100) /uL PT 11.2 (10.1-12.7) SECONDS INR 1.0 (0.9-1.3) APTT 54 H (26.4-36.2) SECONDS Sodium (137-145) mmol/L Potassium (3.4-5.1) mmol/L Chloride (98-107) mmol/L Carbon Dioxide (22-32) mmol/L BUN (7-17) mg/dL Creatinine (0.52-1.04) mg/dL Estimated GFR (>60) mL/min BUN/Creatinine Ratio (6-22) Glucose (80-110) mg/dL Calcium (8.4-10.2) mg/dL Total Bilirubin (0.2-1.3) mg/dL AST (14-36) IU/L ALT (<35) IU/L Alkaline Phosphatase (38-126) U/L Total Creatine Kinase (30-135) U/L CK-MB (CK-2) CK-MB (CK-2) Rel Index Troponin I (0.01-0.034) ng/mL Total Protein (6.3-8.2) g/dL Albumin (3.5-5.0) g/dL Globulin (1.7-4.1) g/dL Albumin/Globulin Ratio (1.0-2.8) Procalcitonin 0.12 (<0.5) ng/mL SARS-CoV-2 (PCR) (Negative) Point of Care Testing Glucose POC [address] scan - head: Radiologist's Impression: PROCEDURE: CT HEAD/BRAIN WO CON INDICATIONS: difficulty with speech now resolved TECHNIQUE: Noncontrast 4.5 mm thick angled axial sections acquired from the foramen magnum to the vertex, with coronal and sagittal reformats. For radiation dose reduction, the following was used: automated exposure control, adjustment of mA and/or kV according to patient size. COMPARISON: [facility], CT, HEAD WITHOUT CONTRAST, 06/30/2016, 21:52. FINDINGS: Image quality: Excellent. CSF spaces: Basal cisterns are patent. No extra-axial fluid collections. The ventricles are symmetric in size and shape. Brain: No intracranial bleeds or masses. There is cerebral volume loss for age, with resultant ventricular and sulcal prominence. There are periventricular and deep white matter chronic small vessel ischemic changes. There is intracranial internal carotid artery atherosclerosis. Skull and face: Calvarium and visualized facial bones appear intact, without suspicious lesions. Sinuses: Visualized sinuses and mastoids are clear. IMPRESSION: 1. No acute intracranial process. 2. Moderate atrophy and chronic microvascular ischemic changes. Dictated by: Doretha Sanchez M.D. on 11/17/2020 at 16:03 Extremity x-ray #1: Radiologist's Impression: PROCEDURE: XR SHOULDER LT MIN 2V INDICATIONS: fracture increased pain TECHNIQUE: 2 views of the shoulder were acquired. COMPARISON: [facility], , XR SHOULDER LT MIN 2V, 11/13/2020, 18:00. FINDINGS: Bones: Stable appearance of comminuted mildly displaced proximal humeral head and neck fracture. There is mild angulation. No dislocation at the glenohumeral joint. Soft tissues: No suspicious soft tissue calcifications. IMPRESSION: Stable appearance of comminuted humeral head and neck fracture. Dictated by: Doretha Sanchez M.D. on 11/17/2020 at 16:12 Approved by: Doretha Sanchez M.D. on 11/17/2020 at 16:13 Chest x-ray: Radiologist's Impression: PROCEDURE: XR CHEST 1V INDICATIONS: short of breath TECHNIQUE: One view of the chest was acquired. COMPARISON: [facility], CHEST 2 VIEW, 05/14/2015, 21:43. FINDINGS: Surgical changes and devices: Distal right clavicle acromioplasty changes are stable. Lungs and pleura: Patchy opacities noted in the lung bases bilaterally left greater than right. No pleural effusions or pneumothorax. Mediastinum: Mediastinal contours appear normal. Heart size is normal. Bones and chest wall: No suspicious bony lesions. Overlying soft tissues appear unremarkable. IMPRESSION: Bibasilar patchy airspace opacities, left greater than right, which could represent atelectasis, aspiration or pneumonia. Dictated by: Krystle Castano MD, PhD on 11/17/2020 at 16:38 ECG Data Attestation: I personally reviewed and interpreted this ECG as follows: Prior ECG tracings: available for review Interpretation: Sinus rhythm rate 66 p.r. interval 170 QRS [address] changes no T-wave inversions similar to previous EKG MDM Narrative Medical decision making narrative: The patient currently has no focal deficits. Her symptoms started at 10:30 a.m. a few hours after she received pain medication for her humerus. She then also received insulin around noon and is now hypoglycemic. Possible TIA versus medication reaction versus hypoglycemia all. Certainly patient is requiring more care than the daughter is able to provide. She is also found to be dehydrated with an increased creatinine of to her baseline is 1.1. Patient also found at the slightly hyponatremic with a sodium of 128 and mild leukocytosis. She is having slight cough. Blood cultures and lactate are pending mild elevation of procalcitonin. At this time without definitive source feel hold on antibiotics. The patient's initial glucose on chemistry is found to be critically low in the 30s. She was awake alert oriented she was given to the sandwich she has juice and is D 50. It was continued to be monitored sign was on the rise is however it quickly fell again into the 30s. Fluids are changed over to D10 she again is given juice. She appears to only be on insulin in no oral medications. Dr. bahena updated patient's symptoms and test results and agrees with observation Dr. Hogan consulted and is in the ED to see and evaluate patient. At this time at humerus fracture is treated with sling and pain control likely non operative. Discharge Plan Departure Patient Disposition: Admitted as Observation Clinical Impression: Brain TIA, Hypoglycemia Fracture, humerus closed Qualifiers: Encounter type: subsequent encounter Admit Date/Time: 11/17/20 17:07 Admit Provider: Meghan Bahena
--- NOTE | 2020-11-17 15:57 | DI.RAD.S_ITS ---
PROCEDURE: XR SHOULDER LT MIN 2V INDICATIONS: fracture increased pain TECHNIQUE: 2 views of the shoulder were acquired. COMPARISON: [facility], CR, XR SHOULDER LT MIN 2V, 11/13/2020, 18:00. FINDINGS: Bones: Stable appearance of comminuted mildly displaced proximal humeral head and neck fracture. There is mild angulation. No dislocation at the glenohumeral joint. Soft tissues: No suspicious soft tissue calcifications. IMPRESSION: Stable appearance of comminuted humeral head and neck fracture. Dictated by: Doretha Sanchez M.D. on 11/17/2020 at 16:12 Approved by: Doretha Sanchez M.D. on 11/17/2020 at 16:13
[2020-11-17 15:58] LABS: Add Manual Diff / Slide Review NO; Basophils Absolute Auto 100 /uL (0-100); Eosinophils Absolute Auto 500 /uL (0-450); Eosinophils Percent Auto 3.7 % (2-4); Hematocrit 32.8 % (36-46); Hemoglobin 10.7 g/dL (12.0-16.0); Lymphocytes Absolute Auto 3000 /uL (1100-4500); Lymphocytes Percent Auto 21.4 % (25-40); Mean Corpuscular HGB Conc 32.6 % (30-36); Mean Corpuscular Hemoglobin 28.7 PG (26-34); Monocytes Absolute Auto 1000 /uL (0-900); Monocytes Percent Auto 7.3 % (3-14); Neutrophils Absolute Auto 9400 /uL (1500-7000); Neutrophils Percent Auto 66.6 % (50-75); Platelet Count 390 X10^3/uL (150-400); Red Blood Cell Count 3.73 X10^6/uL (4.0-5.2); Red Cell Distribution Width 15.4 % (11.6-14.8); White Blood Cell Count 14.1 X10^3/uL (4.5-11.0)
[2020-11-17 15:59] LABS: Prothrombin Time 11.2 SECONDS (10.1-12.7)
[2020-11-17 16:01] LABS: PTT Partial Thromboplastin Tim 54 SECONDS (26.4-36.2)
[2020-11-17 16:02] LABS: Alanine Aminotransferase 22 IU/L (<35); Albumin 3.8 g/dL (3.5-5.0); Albumin Globulin Ratio 1.2 (1.0-2.8); Alkaline Phosphatase 86 U/L (38-126); Aspartate Aminotransferase 33 IU/L (14-36); BUN Creatinine Ratio 38.3 (6-22); Bilirubin Total 0.9 mg/dL (0.2-1.3); Blood Urea Nitrogen 80 mg/dL (7-17); Calcium 9.2 mg/dL (8.4-10.2); Carbon Dioxide 28 mmol/L (22-32); Chloride 94 mmol/L (98-107); Creatine Kinase < 20 U/L (30-135); Globulin 3.2 g/dL (1.7-4.1); HEMOLYSIS 25 (0-50); Potassium 4.2 mmol/L (3.4-5.1); Sodium 128 mmol/L (137-145)
[2020-11-17 16:04] LABS: Glucose 37 mg/dL (80-110)
[2020-11-17] MEDS: DEXTROSE 50 % IN WATER 25 GM/50 ML SYRINGE IV (16:09)
--- NOTE | 2020-11-17 16:09 | DI.RAD.S_ITS ---
PROCEDURE: XR CHEST 1V INDICATIONS: short of breath TECHNIQUE: One view of the chest was acquired. COMPARISON: [facility], , CHEST 2 VIEW, 05/14/2015, 21:43. FINDINGS: Surgical changes and devices: Distal right clavicle acromioplasty changes are stable. Lungs and pleura: Patchy opacities noted in the lung bases bilaterally left greater than right. No pleural effusions or pneumothorax. Mediastinum: Mediastinal contours appear normal. Heart size is normal. Bones and chest wall: No suspicious bony lesions. Overlying soft tissues appear unremarkable. IMPRESSION: Bibasilar patchy airspace opacities, left greater than right, which could represent atelectasis, aspiration or pneumonia. Dictated by: Krystle Castano MD, PhD on 11/17/2020 at 16:38 Approved by: Krystle Castano MD, PhD on 11/17/2020 at 16:39
--- NOTE | 2020-11-17 16:10 | PC.NURSE ---
patient's daughter checked her blood sugar at 12:45 and it was 183. She gave her 20 units of of short acting insulin.
[2020-11-17 16:14] LABS: Troponin I < 0.012 ng/mL (0.01-0.034)
[2020-11-17] MEDS: SODIUM CHLORIDE 0.9% 1,000 ML 100 ML IV (17:22)
[2020-11-17 17:38] LABS: COVID19 - ADMIT (NP swab/PCR) Negative (Negative)
[2020-11-17] MEDS: DEXTROSE 10 % IN WATER 1,000 ML 150 ML IV (17:42)
[2020-11-17 17:55] LABS: Lactate (Lactic Acid) 0.6 mmol/L (0.7-2.1)
--- NOTE | 2020-11-17 18:09 | P.CONS_ITS ---
History of Present Illness Consult details Date Patient Seen: 11/17/20 Time Patient Seen: 18:09 Chief complaint: LEFT SHOULDER IS BROKEN UNABLE TO CARE FOR Reason for consult: Left shoulder fracture Narrative: Patient is is a 75 year old female who had a ground level fall this past and sustained a 2 part proximal humerus fracture of the left shoulder. Patient is right-hand dominant. She was seen [facility] ER where she was discharged with a sling. She presents today with her daughter who states that she is unable to care for her. There is also some concern for possible TIA as the daughter knows some facial asymmetry early in the day however this is completely resolved at this time. Overall patient is deconditioned and morbidly obese difficult for the daughter to provide care for the patient at this time. Patient denies any repeat trauma to the shoulder. Denies any pain in the pelvis hips or lower extremities. Meds Home Medications and Allergies Home Medications Medication Instructions Recorded Confirmed Type ALBUTEROL SULFATE (Ventolin / 2 puff INH Q4H PRN #0 09/01/10 History Proventil) POTASSIUM CHLORIDE (K-Dur) 20 meq PO BID #0 09/01/10 History [CO-Q-1O] 100 mg PO Q DAY #0 09/01/10 History [Calcium Citrate] 630 mg PO Q DAY #0 09/01/10 Rx [LIDEX OINTMENT] 0.05 % TOPICAL BIDP #0 09/01/10 History ALLOPURINOL 300 mg PO BID #0 10/29/10 History CA PANTOTHENATE/FOLIC ACID/VIT 1 tab PO QDAY #0 10/07/11 History (MULTIVITAMIN) VITAMIN D (Vitamin D3) 1,000 unit PO BID #0 10/07/11 History [PREVASTATIN] 20 mg PO Q DAY #0 10/07/11 History estradiol [Estrace] 1 mg PO Q DAY #0 10/07/11 History furosemide 160 mg PO BIDD #0 10/07/11 History insulin aspart U-100 [Novolog 8 unit #0 10/07/11 History U-100 Insulin aspart] insulin detemir U-100 [Levemir 0 unit SQ BID #0 10/07/11 History U-100 Insulin] lorazepam 0.5 mg PO BID #0 10/07/11 History valsartan [Diovan] 320 mg PO Q DAY #0 10/07/11 History metolazone 10 mg PO PRN #0 11/03/11 History omeprazole 40 mg PO BID #0 11/03/11 History oxycodone-acetaminophen [Percocet] 1 tab PO Q6H PRN #20 tab 11/13/20 Rx Allergies Allergy/AdvReac Type Severity Reaction Status Date / Time bacitracin Allergy Mild RASH Verified 11/17/20 15:35 [From NEOSPORIN BLISTERS ([id number])] chlorthalidone Allergy Mild RED RASH Verified 11/17/20 15:35 [CHLORTHALIDONE] hydroxyzine [HYDROXYZINE] Allergy Mild RESP ARREST Verified 11/17/20 15:35 iodine [IODINE] Allergy Mild IV Verified 11/17/20 15:35 CONTRAST-RESP ARREST neomycin Allergy Mild RASH Verified 11/17/20 15:35 [From NEOSPORIN BLISTERS ([id number])] polymyxin B Allergy Mild RASH Verified 11/17/20 15:35 [From NEOSPORIN BLISTERS ([id number])] PAPER TAPE Allergy Mild BLISTERS Uncoded 11/17/20 15:35 RASH Exam Vital Signs (past 8 hours): - 11/17/20 15:30 11/17/20 15:32 11/17/20 16:11 Temperature 97.0 F L Pulse Rate 71 79 66 Respiratory Rate 18 Blood Pressure Pulse Oximetry 93 93 90 L 11/17/20 16:30 11/17/20 17:00 11/17/20 17:30 Temperature Pulse Rate 68 60 61 Respiratory Rate Blood Pressure Pulse Oximetry 94 95 93 11/17/20 17:36 11/17/20 17:40 11/17/20 17:51 Temperature Pulse Rate 63 57 L 69 Respiratory Rate Blood Pressure 131/57 L 131/59 L 132/63 Pulse Oximetry 92 93 93 Oxygen Delivery Method Room Air Narrative Exam Narrative: Neurovascular intact in left upper extremity. No skin breaks about the left shoulder. No pain with palpation about the elbow wrist or hand. Bruising about the left shoulder. Sling in place. Objective Labs Result Diagrams: 11/17/20 15:38 11/17/20 15:38 Labs: Laboratory Results - last 24 hr 11/17/20 11/17/20 11/17/20 15:38 15:38 15:38 WBC 14.1 H RBC 3.73 L Hgb 10.7 L Hct 32.8 L MCV 88.0 MCH 28.7 MCHC 32.6 RDW 15.4 H Plt Count 390 Neut % (Auto) 66.6 Lymph % (Auto) 21.4 L [place] % (Auto) 7.3 Eos % (Auto) 3.7 Baso % (Auto) 1.0 Neut # (Auto) 9400 H Lymph # (Auto) 3000 [place] # (Auto) 1000 H Eos # (Auto) 500 H Baso # (Auto) 100 PT INR APTT Sodium 128 L Potassium 4.2 Chloride 94 L Carbon Dioxide 28 BUN 80 H Creatinine 2.09 H Estimated GFR 23.0 L BUN/Creatinine Ratio 38.3 H Glucose 37 L* Lactate Calcium 9.2 Total Bilirubin 0.9 AST 33 ALT 22 Alkaline Phosphatase 86 Total Creatine Kinase < 20 L CK-MB (CK-2) TNP CK-MB (CK-2) Rel Index TNP Troponin I < 0.012 Total Protein 7.0 Albumin 3.8 Globulin 3.2 Albumin/Globulin Ratio 1.2 SARS-CoV-2 (PCR) Negative 11/17/20 11/17/20 15:38 18:38 WBC RBC Hgb Hct MCV MCH MCHC RDW Plt Count Neut % (Auto) Lymph % (Auto) [place] % (Auto) Eos % (Auto) Baso % (Auto) Neut # (Auto) Lymph # (Auto) [place] # (Auto) Eos # (Auto) Baso # (Auto) PT 11.2 INR 1.0 APTT 54 H Sodium Potassium Chloride Carbon Dioxide BUN Creatinine Estimated GFR BUN/Creatinine Ratio Glucose Lactate 0.6 L Calcium Total Bilirubin AST ALT Alkaline Phosphatase Total Creatine Kinase CK-MB (CK-2) CK-MB (CK-2) Rel Index Troponin I Total Protein Albumin Globulin Albumin/Globulin Ratio SARS-CoV-2 (PCR) Assessment & Plan Assessment & Plan narrative: Patient is a 75-year-old female with a ground level fall approximately 5 days ago and sustained a 2 part proximal humerus fracture left shoulder. This was initially seen [facility] ER where she was sent out with a sling. Patient returns today with a daughter who states that she is unable to provide care for the patient at this time there is also possible concern for TIA earlier however facial asymmetry has resolved no deficits noted at this time. Regarding her left shoulder this appears to be a 2 part proximal humerus fracture likely be able to treat be treated non-op. - sling at all times -okay to come out of the sling for hygiene -okay to come out of the sling to extend the elbow wrist and hand. - nonweightbearing left upper extremity - no active or passive range of motion of the shoulder - follow-up with Orthopedics (Dr. Hogan) in 2 weeks Time Spent With Patient Time with patient: 15-24 minutes
[2020-11-17 18:12] LABS: Procalcitonin 0.12 ng/mL (<0.5)
[2020-11-17 19:54] LABS: Magnesium 3.2 mg/dL (1.6-2.3)
[2020-11-17 19:55] LABS: Hemoglobin A1C% w Est Avg Glu 6.3 % (4.0-6.0)
[2020-11-17 20:28] LABS: Cholesterol 142 mg/dL (140-199); HDL Cholesterol 59 mg/dL (40-60); LDL Cholesterol Calculated 53 mg/dL (<100); Triglycerides 149 mg/dL (35-150)
[2020-11-17] MEDS: carvediloL 12.5 MG TABLET 25 MG PO (21:46)
[2020-11-17] MEDS: HYDROCODONE/ACET 10/325 TABLET 2 TAB PO (22:05)
[2020-11-18] VITALS: BP 177/70; PULSE 81; RESP 20; TEMP 36.3; O2SAT 94
--- NOTE | 2020-11-18 00:34 | PM.HP.1 ---
History of Present Illness History of Present Illness Date Patient Seen: 11/17/20 Time Patient Seen: 19:35 Chief complaint: LEFT SHOULDER IS BROKEN UNABLE TO CARE FOR Narrative: Patient is a 75-year-old female Pari Ruff who presented to the ED a history of diabetes, hyperlipidemia, COPD and recent left humeral comminuted fracture presenting with her daughter today for a couple of reasons. 1st daughter noticed at at 10:30 a.m. she had a slight left facial droop and had difficulty getting words out. This lasted for roughly 4 hours will until 1 hour prior to her arrival to to be emergency department. At the symptoms have now completely resolved. She had no other weakness is. She was given pain medication an hour or 2 before her symptoms. Daughters bigger concern is that she cannot care for her mother with a humerus fracture. She states that she is requiring lot of assistance that she is unable to provide. Patient is right-hand dominant and is able to help out with some things but has apparently difficulty ambulating and other problems. They have an appointment tomorrow with Orthopedics. Upon admit to the floor patient that her daughter states that she kept passing out and patient reports having an episode loss of vision from 12 p.m. to 2:30 p.m. today accompanied left-sided numbness, and difficulty expressing herself or finding words, all her symptoms have since resolved prior to arriving in the ED. admit patient denies chest pain, shortness of numbness, weakness, changes vision, difficulty with speech, balance, fever, body aches, or chills. Patient does complain left arm pain due to humerus fracture states pain is 15/10, currently bandaged in a sling. Patient's presenting vitals upon admit temp 97?, BP 132/63, HR 69, RR 18, O2 saturation 93%. Patient's labs WBC 14.1, hemoglobin 10.7, hematocrit 32.8, sodium 128, chloride 94, BUN 80 creatinine 2.09, glucose 37 EGFR 23, BUN creatinine ratio 38.3, lactate 0.6, total creatinine kinase below 20, troponin negative, procalcitonin negative, NIH score was 0. Head CT:No acute intracranial process. Moderate atrophy and chronic microvascular ischemic changes. CXR:Bibasilar patchy airspace opacities, left greater than right, which could represent atelectasis, aspiration or pneumonia. Left Shoulder Xray:Stable appearance of comminuted humeral head and neck fracture. EKG:Sinus rhythm rate 66 p.r. interval 170 QRS [address] changes no T-wave inversions similar to previous EKG. Dr. Wilson the ED consult:Patient is a 75-year-old female with a ground level fall approximately 5 days ago and sustained a 2 part proximal humerus fracture left shoulder. This was initially seen on Hospital ER where she was sent out with a sling. Patient returns today with a daughter who states that she is unable to provide care for the patient at this time there is also possible concern for TIA earlier however facial asymmetry has resolved no deficits noted at this time. Regarding her left shoulder this appears to be a 2 part proximal humerus fracture likely be able to treat be treated non-op. Patient History Medical History COPD exacerbation Diabetes Surgical History (Updated 11/18/20 @ 00:48 by JASVIR Stevens) H/O shoulder surgery History of knee surgery Family & Social History Family History Mother Cancer Stroke Father Diabetes mellitus Cancer History of coronary artery bypass graft Sister Hypertension Cancer Social History: household members family- daughter & 2 nieces, retired [employer] Prior Living Arrangements House Safety & Behavioral: Feels Safe in Current Yes Environment Been Physically Hurt or No Threatened By a Person Suicidal Ideation Description None Suicide Plan Description No Plan Tobacco & Substance use: Tobacco type cannabis/marijuana Smoking Status Former smoker alcohol intake frequency 0-2 drinks per day Substance Use Type marijuana Meds Home Medications and Allergies Home Medications Medication Instructions Recorded Confirmed Type ALBUTEROL SULFATE (Ventolin / 2 puff INH Q4H PRN #0 09/01/10 11/17/20 History Proventil) POTASSIUM CHLORIDE (K-Dur) 20 meq PO BID #0 09/01/10 11/17/20 History [CO-Q-1O] 100 mg PO Q DAY #0 09/01/10 11/17/20 History [Calcium Citrate] 630 mg PO Q DAY #0 09/01/10 11/17/20 Rx ALLOPURINOL 300 mg PO BID #0 10/29/10 11/17/20 History CA PANTOTHENATE/FOLIC ACID/VIT 1 tab PO QDAY #0 10/07/11 11/17/20 History (MULTIVITAMIN) VITAMIN D (Vitamin D3) 1,000 unit PO BID #0 10/07/11 11/17/20 History [PREVASTATIN] 20 mg PO Q DAY #0 10/07/11 11/17/20 History estradiol [Estrace] 1 mg PO Q DAY #0 10/07/11 11/17/20 History furosemide 40 mg PO BIDD #0 10/07/11 11/17/20 History lorazepam 0.5 mg PO BID #0 10/07/11 11/17/20 History valsartan [Diovan] 320 mg PO Q DAY #0 10/07/11 11/17/20 History omeprazole 40 mg PO BID #0 11/03/11 11/17/20 History carvedilol 25 mg PO BID 11/17/20 11/17/20 History escitalopram oxalate 5 mg PO DAILY 11/17/20 11/17/20 History hydrocodone-acetaminophen 1 tab PO Q6H PRN 11/17/20 11/17/20 History insulin glargine U-300 conc 30 unit SUBCUT DAILY 11/17/20 11/17/20 History [Toujeo SoloStar U-300 Insulin] insulin lispro [Humalog U-100 0 sliding scale dose SUBCUT AC 11/17/20 11/17/20 History Insulin] oxycodone-acetaminophen 1 tab PO Q6H PRN 11/17/20 11/17/20 History prednisone 11/17/20 History tiotropium bromide [Spiriva with INHALATION 11/17/20 History HandiHaler] Allergies Allergy/AdvReac Type Severity Reaction Status Date / Time bacitracin Allergy Mild RASH Verified 11/17/20 15:35 [From NEOSPORIN BLISTERS ([id number])] chlorthalidone Allergy Mild RED RASH Verified 11/17/20 15:35 [CHLORTHALIDONE] hydroxyzine [HYDROXYZINE] Allergy Mild RESP ARREST Verified 11/17/20 15:35 iodine [IODINE] Allergy Mild IV Verified 11/17/20 15:35 CONTRAST-RESP ARREST neomycin Allergy Mild RASH Verified 11/17/20 15:35 [From NEOSPORIN BLISTERS ([id number])] polymyxin B Allergy Mild RASH Verified 11/17/20 15:35 [From NEOSPORIN BLISTERS ([id number])] PAPER TAPE Allergy Mild BLISTERS Uncoded 11/17/20 15:35 RASH Review of Systems Review of Systems ROS: Yes All systems reviewed with the patient and are negative except as otherwise documented Musculoskeletal Musculoskeletal: Reports limited range of motion Comments: Pain in left arm Exam Vital Signs (past 8 hours): - 11/17/20 17:00 11/17/20 17:30 11/17/20 17:36 Temperature Pulse Rate 60 61 63 Respiratory Rate Blood Pressure 131/57 L Pulse Oximetry 95 93 92 11/17/20 17:40 11/17/20 17:51 11/17/20 18:15 Temperature 97.6 F Pulse Rate 57 L 69 68 Respiratory Rate 18 Blood Pressure 131/59 L 132/63 153/64 H Pulse Oximetry 93 93 94 11/17/20 20:30 11/17/20 21:13 11/17/20 21:46 Temperature 97.9 F Pulse Rate 74 74 Respiratory Rate 18 Blood Pressure 141/76 H 141/76 H Pulse Oximetry 94 11/17/20 23:51 11/18/20 00:00 Temperature 97.3 F L Pulse Rate 81 Respiratory Rate 20 Blood Pressure 177/70 H Pulse Oximetry 93 94 Oxygen Delivery Method Room Air Oxygen Flow Rate 0 Narrative Exam Narrative: General: Patient is a well-developed, well-nourished Female in no distress at this time. HEENT: Normocephalic, atraumatic, extraocular muscles intact, oral pharynx is clear and mucous membranes are moist. Neck is supple and symmetric, trachea is midline, no adenopathy, no thyroid enlargement, nontender, no masses palpated. Negative for JVD Chest: Normal AP diameter and contour without kyphoscoliosis, no nasal flaring, retractions, or tachypneic labored Lungs: Auscultation of all lung monzon are clear without adventitious sounds, wheezes, rhonchi, or rales. Cardio: S1 & S2 with regular rate and rhythm without murmur, rubs, or gallops, no carotid bruit, no cardiac pulsations present. Abdomen: Soft nontender, negative for organomegaly, or masses. Bowel sounds are present in all 4 quadrants without guarding or rebound, no CVA tenderness. Musculoskeletal: Muscle strength and tone are equal within normal limits, no deformity, crepitus, effusions, cyanosis, clubbing or edema present. Full range of motion intact radial and pedal pulses are normal. with the exception of the left arm which is bandaged and in a sling and was not evaluated. Skin: Warm dry and intact without rashes, ulcerations or petechiae. With the exception of multiple healing scabs from abrasions to the right lower leg. Without signs of infection Neuro: Alert and orientated x3, strength is +5/5 in all extremities, sensation to touch intact, no gross deficits noted of cranial nerves. Psych: Patient has a well-kept appearance, appropriate affect, mental status attitude thought context and judgment are appropriate for age. Objective Labs Result Diagrams: 11/17/20 15:38 11/17/20 15:38 Labs: Laboratory Results - last 24 hr 11/17/20 11/17/20 11/17/20 15:38 15:38 15:38 WBC 14.1 H RBC 3.73 L Hgb 10.7 L Hct 32.8 L MCV 88.0 MCH 28.7 MCHC 32.6 RDW 15.4 H Plt Count 390 Neut % (Auto) 66.6 Lymph % (Auto) 21.4 L Winkler % (Auto) 7.3 Eos % (Auto) 3.7 Baso % (Auto) 1.0 Neut # (Auto) 9400 H Lymph # (Auto) 3000 Winkler # (Auto) 1000 H Eos # (Auto) 500 H Baso # (Auto) 100 PT INR APTT Sodium 128 L Potassium 4.2 Chloride 94 L Carbon Dioxide 28 BUN 80 H Creatinine 2.09 H Estimated GFR 23.0 L BUN/Creatinine Ratio 38.3 H Glucose 37 L* Hemoglobin A1c Lactate Calcium 9.2 Magnesium Total Bilirubin 0.9 AST 33 ALT 22 Alkaline Phosphatase 86 Total Creatine Kinase < 20 L CK-MB (CK-2) TNP CK-MB (CK-2) Rel Index TNP Troponin I < 0.012 Total Protein 7.0 Albumin 3.8 Globulin 3.2 Albumin/Globulin Ratio 1.2 Triglycerides Cholesterol LDL Cholesterol, Calc HDL Cholesterol Procalcitonin SARS-CoV-2 (PCR) Negative 11/17/20 11/17/20 11/17/20 15:38 15:38 15:38 WBC RBC Hgb Hct MCV MCH MCHC RDW Plt Count Neut % (Auto) Lymph % (Auto) Winkler % (Auto) Eos % (Auto) Baso % (Auto) Neut # (Auto) Lymph # (Auto) Winkler # (Auto) Eos # (Auto) Baso # (Auto) PT 11.2 INR 1.0 APTT 54 H Sodium Potassium Chloride Carbon Dioxide BUN Creatinine Estimated GFR BUN/Creatinine Ratio Glucose Hemoglobin A1c Lactate Calcium Magnesium 3.2 H Total Bilirubin AST ALT Alkaline Phosphatase Total Creatine Kinase CK-MB (CK-2) CK-MB (CK-2) Rel Index Troponin I Total Protein Albumin Globulin Albumin/Globulin Ratio Triglycerides Cholesterol LDL Cholesterol, Calc HDL Cholesterol Procalcitonin 0.12 SARS-CoV-2 (PCR) 11/17/20 11/17/20 11/17/20 15:38 15:38 18:38 WBC RBC Hgb Hct MCV MCH MCHC RDW Plt Count Neut % (Auto) Lymph % (Auto) Winkler % (Auto) Eos % (Auto) Baso % (Auto) Neut # (Auto) Lymph # (Auto) Winkler # (Auto) Eos # (Auto) Baso # (Auto) PT INR APTT Sodium Potassium Chloride Carbon Dioxide BUN Creatinine Estimated GFR BUN/Creatinine Ratio Glucose Hemoglobin A1c 6.3 H Lactate 0.6 L Calcium Magnesium Total Bilirubin AST ALT Alkaline Phosphatase Total Creatine Kinase CK-MB (CK-2) CK-MB (CK-2) Rel Index Troponin I Total Protein Albumin Globulin Albumin/Globulin Ratio Triglycerides 149 Cholesterol 142 LDL Cholesterol, Calc 53 HDL Cholesterol 59 Procalcitonin SARS-CoV-2 (PCR) Assessment & Plan Assessment & Plan narrative: 1. Left-sided facial droop rule out possible TIA, acute, guarded, not present on admission -differential diagnosis TIA, stroke symptoms lasting greater than 24 hours, ischemic stroke, intracranial hemorrhage, subdural hematoma, epidural hematoma, seizure, brain tumor, migraine, vertigo, hypoglycemia, Marisabel Weidman syndrome, multiple sclerosis, aortic dissection -TIA likely as a result of patient's history of hypertension, COPD, hyperlipidemia, and insulin-dependent type 2 diabetes, obesity as evidenced by BMI of 39.1. vitals upon admit temp 97?, BP 132/63, HR 69, RR 18, O2 saturation 93%. Patient's labs WBC 14.1, hemoglobin 10.7, hematocrit 32.8, sodium 128, chloride 94, BUN 80 creatinine 2.09, glucose 37 EGFR 23, BUN creatinine ratio 38.3, lactate 0.6, total creatinine kinase below 20, troponin negative, procalcitonin negative, NIH score was 0. Head CT:No acute intracranial process. Moderate atrophy and chronic microvascular ischemic changes. CXR:Bibasilar patchy airspace opacities, left greater than right, which could represent atelectasis, aspiration or pneumonia. Left Shoulder Xray:Stable appearance of comminuted humeral head and neck fracture. EKG:Sinus rhythm rate 66 p.r. interval 170 QRS [address] changes no T-wave inversions similar to previous EKG. Vital signs q.4 hours, neuro checks q.2 hours for 1st 24 hours then q.4 hours, notify provider for temp greater than 38 C, , heart rate >100 -treat systolic blood pressure>220 or diastolic blood pressure> 120 -activity bed rest until initial physical therapy assessment is performed, then mobilize DARIEL as guided by Physical therapy, strict fall precautions. -supplemental O2 to maintain> 94%, check capillary blood glucose q.6 hours. -Diet NPO until swallow evaluation is done, then heart healthy if cleared -fluids:NS60cc/Hr -Medications: Aspirin 325 mg p.o. q.day within 48 hours, Plavix 75 mg daily.Hold Lasix -labs CBC with platelets, PT/PTT/INR, CMP, TSH, troponins, glucose, hemoglobin A1c, ESR/CRP, Lipid panel 2. Hypoglycemia, acute, secondary to insulin-dependent type 2 diabetes as result obesity and hyperlipidemia, present on admission -patient verbalized that she may have taken extra dose of her insulin. I am currently holding patient's long-acting Levemir insulin and will monitor to see if her blood sugars can be controlled as an inpatient simply with medium dose sliding scale, concern patient may be overdosing on her insulin. Monitor for hyper/hypoglycemia. Blood sugar checks ACHS, diabetes protocol in place. -continue patient's pravastatin 3. Left humerus fracture, acute, secondary to fall possibly secondary to TIA induced fall, present on admission -continue to keep patient comfortable pain management and sling. Dr. Hogan ED consult Patient is a 75-year-old female with a ground level fall approximately 5 days ago and sustained a 2 part proximal humerus fracture left shoulder. This was initially seen on Hospital ER where she was sent out with a sling. Patient returns today with a daughter who states that she is unable to provide care for the patient at this time there is also possible concern for TIA earlier however facial asymmetry has resolved no deficits noted at this time. Regarding her left shoulder this appears to be a 2 part proximal humerus fracture likely be able to treat be treated non-op. - sling at all times -okay to come out of the sling for hygiene -okay to come out of the sling to extend the elbow wrist and hand. - nonweightbearing left upper extremity - no active or passive range of motion of the shoulder - follow-up with Orthopedics (Dr. Hogan) in 2 weeks 4. Hypertension, essential, chronic, not present on admission-well controlled -Continue patient's Diovan and Coreg 5. Depression with anxiety, acute on chronic, not present on admission -patient denies suicidal ideation anxiety or depression symptoms -continue patient's Lexapro and Ativan 6. Obesity as evidence by BMI of 39.1, acute on chronic, present on admission -consideration will be given to dietary counseling Code status: DNR Surrogate decision maker daughter Mikayla BOBBY PCR: Negative VTE/DVT prophylaxis: Plavix 75 mg and SCDs Scores GCS Li coma scale eye opening: Spontaneous Li coma scale verbal response: Orientated Bone Gap coma scale motor response: Obey commands Li coma scale total score: 15 ABCD2 Age >= 60 years: yes Initial BP. Either SBP >= 140 or DBP >= 90.: no Clinical features of the TIA: speech disturbance without weakness Duration of symptoms: >= 60 minutes History of diabetes: yes ABCD2 Score: 5 NIHSS Level of Conciousness: Alert, keenly responsive Ask month/age: Answers both questions correctly. Open/close eyes, close hand: Performs both tasks correctly Best gaze horizontal: Normal Visual monzon: No visual loss Facial palsy: Normal symetrical movement Left arm drift: No drift for full 10 sec Right arm drift: No drift for full 10 sec Left leg drift: No drift for full 5 sec Right leg drift: No drift for full 5 sec Limb ataxia: Absent Sensory on face/arms/legs: Normal, no sensory loss Best language: No aphasia, normal Dysarthria: Normal Extinction or inattention: No abnormality Total NIH Stroke scale score: 0
[2020-11-18] MEDS: SODIUM CHLORIDE 0.9% 1,000 ML 60 ML IV (01:19)
--- NOTE | 2020-11-18 03:01 | PC.NURSE ---
Addendum entered by Cherrie Tubbs R.N. 11/18/20 06:53: NIH was 5 only because patient is unable to perform for testing of drift/ataxia on left UE related to humeral fx and immobilization of arm Original Note: 6950: patient is alert and oriented. Breath sounds coarse with harsh sounding cough; states she has been coughing up yellow sputum but not witnessed. RA sat is 94%. Telemetry reading was SA. Denies nausea. BT present and abdomen is soft. Denies dysuria, frequency or urgency with urination. Is able to move herself in bed and is receiving SBA when up to bathroom. Left UE is in a sling; extremity is warm with good capillary refill and radial pulse. Bruises/abrasions to all extremities as well as bruising on abdomen, left lateral thigh and left flank/back. Complains of burning pain in left UE and has Lidocaine patches on (states daughter placed them at home) and had received Vicodin at 2205 so ice pack applied. Bilateral calf SCD's applied. Fall risk score is high and bed alarm is activated.
[2020-11-18] MEDS: HYDROCODONE/ACET 10/325 TABLET 2 TAB PO ×3 (04:59→17:10)
[2020-11-18 05:13] VITALS: BP 158/53; PULSE 69; RESP 18; TEMP 36.4; O2SAT 94
[2020-11-18 05:21] LABS: Add Manual Diff / Slide Review NO; Basophils Absolute Auto 100 /uL (0-100); Basophils Percent Auto 0.6 % (0-2); Eosinophils Absolute Auto 400 /uL (0-450); Eosinophils Percent Auto 3.3 % (2-4); Hematocrit 29.8 % (36-46); Hemoglobin 9.8 g/dL (12.0-16.0); Lymphocytes Absolute Auto 3400 /uL (1100-4500); Lymphocytes Percent Auto 27.3 % (25-40); Mean Corpuscular HGB Conc 32.9 % (30-36); Mean Corpuscular Hemoglobin 29.1 PG (26-34); Mean Corpuscular Volume 88.3 fL (80-100); Monocytes Absolute Auto 1000 /uL (0-900); Monocytes Percent Auto 7.6 % (3-14); Neutrophils Absolute Auto 7700 /uL (1500-7000); Neutrophils Percent Auto 61.2 % (50-75); Platelet Count 330 X10^3/uL (150-400); Red Blood Cell Count 3.38 X10^6/uL (4.0-5.2); Red Cell Distribution Width 15.8 % (11.6-14.8); White Blood Cell Count 12.5 X10^3/uL (4.5-11.0)
[2020-11-18 05:23] LABS: Prothrombin Time 11.5 SECONDS (10.1-12.7)
[2020-11-18 05:31] LABS: Alanine Aminotransferase 20 IU/L (<35); Albumin 3.1 g/dL (3.5-5.0); Albumin Globulin Ratio 1.2 (1.0-2.8); Alkaline Phosphatase 89 U/L (38-126); Aspartate Aminotransferase 24 IU/L (14-36); Bilirubin Total 0.7 mg/dL (0.2-1.3); Blood Urea Nitrogen 70 mg/dL (7-17); Calcium 8.5 mg/dL (8.4-10.2); Carbon Dioxide 32 mmol/L (22-32); Chloride 97 mmol/L (98-107); Estimated Glomerular Filt Rate 28.3 mL/min (>60); Globulin 2.6 g/dL (1.7-4.1); Glucose 136 mg/dL (80-110); HEMOLYSIS < 15 (0-50); Potassium 4.8 mmol/L (3.4-5.1); Sodium 130 mmol/L (137-145); Total Protein 5.7 g/dL (6.3-8.2)
[2020-11-18 05:36] LABS: Hemoglobin A1C% w Est Avg Glu 6.2 % (4.0-6.0)
[2020-11-18 05:48] LABS: Erythrocyte Sedimentation Rate 72 MM/HR (0-20)
[2020-11-18 05:57] LABS: TSH w/ Reflex to FT4 0.18 uIU/mL (0.47-4.68)
[2020-11-18 06:32] LABS: Free T4, Direct Thyroxine 1.37 ng/dL (0.78-2.19)
[2020-11-18 07:30] VITALS: BP 158/70; PULSE 64; RESP 22; TEMP 37.2; O2SAT 94
[2020-11-18] MEDS: carvediloL 12.5 MG TABLET 25 MG PO (09:05)
[2020-11-18] MEDS: VALSARTAN 80 MG TABLET 320 MG PO (09:05)
[2020-11-18] MEDS: ASPIRIN EC 325 MG TABLET PO (09:05)
[2020-11-18] MEDS: CLOPIDOGREL 75 MG TABLET PO (09:05)
[2020-11-18] MEDS: ESCITALOPRAM 10 MG TABLET 5 MG PO (09:06)
[2020-11-18] MEDS: PRAVASTATIN 20 MG TABLET PO (09:06)
[2020-11-18] MEDS: LORazepam 0.5 MG TABLET PO (09:45)
--- NOTE | 2020-11-18 11:52 | OT.IP.EVAL ---
Past Medical History (Last Review[facility] 11/18/20 @ 00:47 [facility] COPD exacerbation Diabetes Surgical History (Last Updated 11/18/20 @ 00:48 by REZA StevensEDEL) H/O shoulder surgery History of knee surgery Occupational Therapy Inpatient Evaluation/Re-Eval M1 PT/OT-IP Prior Functional Status Start: 11/18/20 12:50 Freq: NEEDED Status: Active Protocol: Document 11/18/20 11:15 [facility] (Rec: 11/18/20 13:18 [facility] [id number]) Medical Review Prior Functional Status Medical History Reviewed Yes Communication Independent. Mobility and Gait Pt states occasionally uses a small based quad cane for ambulations needs. Activities of Daily Living and IADL's Pt states completely independent with all ADl , IADl and driving needs. Prior Functional Level (Other details) Pt states her daughter and grand daughters live with her and able to assist. Social History Household Members family Living Arrangements House Number of Floors (Floors) One Floor Number of Stairs To Enter/Railing? One step and pt states able to hold the door jam for assist as needed. Home Environment High Toilet,Tub/Shower Home Equipment Quad Cane,Shower Seat with Backrest M1 PT/OT-IP Prior Functional Status Start: 11/18/20 12:53 Freq: NEEDED Status: Active Protocol: Document 11/18/20 11:55 AB (Rec: 11/18/20 13:08 AB [id number]) Medical Review Prior Functional Status Medical History Reviewed Yes Communication able to make needs known Mobility and Gait pt stated that prior to L shoulder fx (~ 5 days ago), she was independent with all mobilities and ambulation without AD but occasionally uses a quad cane or her walking stick depending on how she feels; stated that she has balance problems even before Social History Household Members family Living Arrangements House Number of Floors (Floors) One Floor Number of Stairs To Enter/Railing? 1 step to enter Home Environment Walk in Shower,Tub/Shower Home Equipment Quad Cane,Shower Seat without Backrest Additional Social History Comment pt also has a walking stick pt lives with her daughter and 2 grand daughters M2 OT-IP Current Condition Start: 11/18/20 12:50 Freq: Status: Active Protocol: Document 11/18/20 11:15 [facility] (Rec: 11/18/20 13:18 [facility] [id number]) Occupational Therapy Current Condition Current Condition Evaluation Date 11/18/20 Treatment Diagnosis Left Humeral comminuted fx, left sided weakness Diagnosis Onset Date 11/17/20 Post Operative Precautions Shoulder Precautions Sling Other Precautions No left shoulder AROM/PROM Okay out of sling for hygiene Okay to extend left wrist and hand NWB LUE M3 OT- IP Subjective and Pain Start: 11/18/20 12:50 Freq: Status: Active Protocol: Document 11/18/20 11:15 [facility] (Rec: 11/18/20 13:18 [facility] [id number]) OT- Subjective Occupational Therapy Visit Type Type Initial Evaluation Visit Start Time 11:15 Visit Stop Time 11:52 Total Visit Minutes 37 Occupational Therapy Visit Comments Patient Comments Pt agreed to get up for OT eval. Patient/Caregiver Goals TO go home. OT Pain Assessment Pain When Pain Assessed At Rest Pain Present Pain Present Pain Reported Location left arm Intensity 3 Scale Used Numeric (0 - 10) M4 OT- IP ADL's Start: 11/18/20 12:50 Freq: Status: Active Protocol: Document 11/18/20 11:15 [facility] (Rec: 11/18/20 13:18 [facility] [id number]) OT [id number] Comments OT Self-Feeding Comments NOt at meal time, but padmini need assist for set-up. OT ADL-Grooming General Evaluation Grooming Ability Moderate Assistance Areas Needing Assistance Combing/Brushing Hair Comments OT Grooming Comments Assist to comb her hair and set-up assist for other needs. OT ADL-Oral Care General Eval Oral Care Ability Standby Assistance Areas of Assistance Retrieving/Set-Up of Items OT ADL-Dressing General Eval Upper Body Dressing Ability Maximum Assistance Lower Body Dressing Ability Maximum Assistance Comments OT Dressing Comments Pt will need MAX A for all UB and LB dressing needs at this time. OT ADL-Toileting General Evaluation Toileting Ability Maximum Assistance Areas Needing Assistance Manage Clothing,Perform Perineal Hygiene Comments OT Toileting Comments Pt unable to reach and will need assist for all toileting needs at this time. Pt would benefit from use of pull ups and have a BSC at home. OT ADL-Bathing Comments OT Bathing Comments Pt not wanting to shower at this time. M5 OT- IP IADL's Start: 11/18/20 12:50 Freq: Status: Active Protocol: Document 11/18/20 11:15 [facility] (Rec: 11/18/20 13:18 [facility] [id number]) OT-Instrumental Activities of Daily Living Home Safety Awareness Awareness of Need for Assistance at Home Good Awareness Ability to Problem Solve Emergency Able to Problem Solve Situations Home Safety Comments Pt able to answer all home safety questions with 100% accuracy. Meal Preparation Meal Preparation Caregiver Provides Assist Pathology Manager Pathology Manager Caregiver Provides Assist M6 OT- IP Functional Cognition Start: 11/18/20 12:50 Freq: Status: Active Protocol: Document 11/18/20 11:15 [facility] (Rec: 11/18/20 13:18 [facility] [id number]) Cognitive Factors Limiting Selfcare Function Cognitive Ability Level of Alertness Alert Patient Orientation Name,Age,Birthday,Month,Date, Year,Day of Week,Place, Situation Attention Span Ability Capable of Focused Attention, Capable of Sustained Attention Ability to Follow Commands Able to Follow One Step Commands Memory Description Short Term Impaired Problem Solving Ability No deficits Noted Cognitive Comments Cognitive Assessment Comments Pt able to follow directions with good safety. Pt does have short term memory issues as not able to recall what OT said about her precautions, however pt states has memory issues prior. OT- Vision and Hearing OT- Vision Assessment Visual Acuity Glasses All The Time,Glasses For Reading M7 OT- IP Mobility and Balance Start: 11/18/20 12:50 Freq: Status: Active Protocol: Document 11/18/20 11:15 [facility] (Rec: 11/18/20 13:18 [facility] [id number]) OT- Bed Mobility Assessment Rolling Level of Assistance Moderate Assistance Supine to Sit Supine to Sit Assist Moderate Assistance OT-Transfer Assessment Sit to and From Stand Sit to and from Stand Minimal Assistance Transfers Transfer Ability Standby Assistance Technique Transfer Destination Bed,Chair Devices Transfer Assistive Devices Gait Belt,Small Based Quad Cane Comments Mobility Comments Pt needing MODA to help get out of the bed as pt not able to roll to her side and needing assist to roll and get upright. Pt having good insight to say to move her bed around so to get up from the right side now as unable to get up on the left side due to her fractured left shoulder. OT- Gait Assessment Comments Gait Ability Comments SBA for level surfaces with small based quad cane. OT- Balance Assessment Sitting Balance and Reactions Static Sitting Balance Ability Normal Dynamic Sitting Balance Ability Fair Standing Balance and Reactions Static Standing Balance Ability Good M8 OT- IP Objective Assessments Start: 11/18/20 12:50 Freq: Status: Active Protocol: Document 11/18/20 11:15 [facility] (Rec: 11/18/20 13:18 [facility] [id number]) OT Gross Range of Motion Upper Extremity Range of Motion Assessment Left Impaired OT Strength Upper Extremity Strength Assessment Left Impaired OT-Muscle Tone Assessment Muscle Tone WNL Yes M9 OT- IP Assessment and Plan Start: 11/18/20 12:50 Freq: Status: Active Protocol: Document 11/18/20 11:15 [facility] (Rec: 11/18/20 13:18 [facility] [id number]) OT Summary Assessment and Plan Potential Rehabilitation Potential Good Analytic Complexity at Evaluation Low Summary OT Impairments Pain,Range of Motion,Strength, Balance,Functional Cognition, Functional Mobility,Self- Feeding,Grooming,Dressing, Toileting,Bathing,Toilet Transfers,Shower Transfers, Activity Tolerance Progress Towards Goals Progressing Toward Goals Assessment Summary Pt low complexity and here due to left weakness and loss of vision and GLF about 6 days ago resulting in left humeral comminuted fx. Pt states has supportive daughter and grand daughters at home to assist with her needs. Pt would benefit from a BSC and bed rail. Goals Self-Feeding Goal Standby Assistance Grooming Goal Standby Assistance Dressing Goal Moderate Assistance Toileting Goal Moderate Assistance Bathing Goal Moderate Assistance Toilet Transfer Goal Standby Assistance Shower Transfer Goal Standby Assistance Patient/Caregiver Education Goal Demonstrate Post-Op Precautions,Caregiver Independent Assisting Patient Days to Meet Goals 2 Frequency of Treatment Frequency Of Treatment Once a Day Treatment Plan OT Treatment Plan ADL Training,Functional Cognition Training,Functional Mobility,Patient/Family Education,Discharge Planning Other Treatment Recommendations and Next Shower if still here. Treatment Focus Discharge Recommendations OT Discharge Recommendations Home with 14/03 Assist Available Home Equipment Needs BSC, bed rail Transportation Needs at Discharge Private Vehicle
--- NOTE | 2020-11-18 11:55 | PT.IIE ---
Surgical History (Last Updated 11/18/20 @ 00:48 [facility] H/O shoulder surgery History of knee surgery Medical History (Last Reviewed 11/18/20 @ 00:47 by REZA StevensEDEL) COPD exacerbation Diabetes Physical Therapy Inpatient Evaluation/Re-Eval M1 PT/OT-IP Prior Functional Status Start: 11/18/20 12:53 Freq: NEEDED Status: Active Protocol: Document 11/18/20 11:55 [facility] Review Prior Functional Status Medical History Reviewed Yes Communication able to make needs known Mobility and Gait pt stated that prior to L shoulder fx (~ 5 days ago), she was independent with all mobilities and ambulation without AD but occasionally uses a quad cane or her walking stick depending on how she feels; stated that she has balance problems even before Social History Household Members family Living Arrangements House Number of Floors (Floors) One Floor Number of Stairs To Enter/Railing? 1 step to enter Home Environment Walk in Shower,Tub/Shower Home Equipment Quad Cane,Shower Seat without Backrest Additional Social History Comment pt also has a walking stick pt lives with her daughter and 2 grand daughters M2 PT-IP Current Condition Start: 11/18/20 12:53 Freq: NEEDED Status: Active Protocol: Document 11/18/20 11:55 [facility] (Rec: 11/18/20 13:[facility] Physical Therapy Current Condition Current Condition Evaluation Date 11/18/20 Treatment Diagnosis L humeral fx; TIA; difficulty in walking Onset Date 11/17/20 Precautions Shoulder Precautions Sling Other Precautions L shoulder: Ok to come out of sling for hygiene; ok to come out of the sling to extend the elbow, wrist, hand; No active or passive range of motion on L shoulder; NWB on LUE Weight Bearing Status Weight Bearing Status Non-Weight Bearing Allowed Weight Bearing Amount (enter % LUE NWB or #) (%) M3 PT-IP Subjective Start: 11/18/20 12:53 Freq: NEEDED Status: Active Protocol: Document 11/18/20 11:55 [facility] (Rec: 11/18/20 13:08 [facility] Subjective Physical Therapy Visit Type Type Initial Evaluation Visit Start Time 11:55 Visit Stop Time 12:20 Total Visit Minutes 25 Number of FITNESS COORDINATOR Visits 0 Physical Therapy Visit Comments Patient Comments agreeable to do PT Therapy Pain Assessment Pain When Pain Assessed At Rest Pain Present Pain Present Pain Reported Location Left Shoulder Intensity 3 Scale Used Numeric (0 - 10) Pain Management Techniques Distraction,Modification of Treatment,Re-positioning, Timing of Activity with Medications M4 PT-IP Mobility and Gait Start: 11/18/20 12:53 Freq: NEEDED Status: Active Protocol: Document 11/18/20 11:55 AB (Rec: 11/18/20 13:08 AB [id number]) PT-Bed Mobility Assessment Supine to Sit Supine to Sit Standby Assistance Sit to Supine Sit to Supine Standby Assistance PT-Transfer Assessment Sit to and From Stand Sit to and from Stand Standby Assistance Equipment Transfer Assistive Device None,Gait Belt,Small Based Quad Cane Orthotic/Prosthetic Devices or Brace: No Transfers Transfer Destination Bed,Chair Transfer Technique ambulated using quad cane Transfer Ability Level of Assist Standby Assistance,Use of Upper Extremities Comments Mobility Comments pt sitting on chair and agreed to do PT. educated on shoulder precautions. c/o pain on L shoulder and does not want sling to come out to do elbow/wrist exercises. completed sit to stand from the chair SBA and ambulated using quad cane SBA and cues for correct use of cane 30 ft. pt ambulated to the bed using quad cane and completed supine <>sit SBA. assessed ambulation without AD and completed 30 ft SBA. pt agreed to stay up on chair. positioned on chair. call light and table placed within reach. Gait Assessment Gait Gait Assistance Required: Standby Assistance Distance (Feet) 30 Able to Maintain Weight Bearing Status Yes During Gait Assistive Devices Assistive Device None,Gait Belt,Small Based Quad Cane Orthotic/Prosthetic Devices or Brace: Yes Gait Deviations General Gait Pattern Antalgic,Step-to Gait Factors Limiting Gait Function Factors Limiting Gait Function Decreased Strength,Limited Range of Motion,Pain,Poor Balance,Poor Safety Awareness Comments Gait Comments pls refer to mobility section for details PT-Balance Assessment Sitting Balance and Reactions Static Sitting Balance Ability Normal Dynamic Sitting Balance Ability Normal Standing Balance and Reactions Static Standing Balance Ability Good Dynamic Standing Balance Ability Good Device Used without AD M5 PT-IP Objective Assessments Start: 11/18/20 12:53 Freq: NEEDED Status: Active Protocol: Document 11/18/20 11:55 AB (Rec: 11/18/20 13:08 AB [id number]) Orientation Orientation/Cognition Level of Alertness Alert Orientation Name,Place,Situation Safety Awareness Decreased Safety Awareness Gross Range of Motion Lower Extremity ROM Assessment Within Functional Limits Strength Lower Extremity Strength Assessment Within Functional Limits Sensation Assessment Sensation Gross Sensation WNL Muscle Tone Muscle Tone WNL Yes M6 PT-IP Treatment Start: 11/18/20 12:53 Freq: NEEDED Status: Active Protocol: Document 11/18/20 11:55 AB (Rec: 11/18/20 13:08 AB [id number]) Physical Therapy Treatment Education Education Provided Precautions,Weight Bearing Status,Safety M7 PT-IP Assessment and Plan Start: 11/18/20 12:53 Freq: NEEDED Status: Active Protocol: Document 11/18/20 11:55 AB (Rec: 11/18/20 13:08 AB [id number]) PT Summary Assessment and Plan Potential Rehabilitation Potential Good Status of Condition at Evaluation Stable Summary Impairments Pain,ROM,Strength,Balance, Coordination,Sensation,Tone, Cognition,Bed Mobility, Transfers,Gait,Activity Tolerance Assessment Summary pt requiring SBA with mobility and ambulation without AD. pt has recent L humeral fracture and no surgical intervention needed at this time. L UE on a sling and pt is aware of precautions on LUE . pt lives with her daughter and 2 grand daughters and stated that her family can assist her. pt may go home when medically stable. Goals Bed Mobility Goal Independent Transfer Goal Independent Gait Goal Independent Gait Distance 150 Other Goals up/down 1 steps SBA Days to Meet Goals 3 Frequency of Treatment Frequency Of Treatment Once a Day Treatment Plan Physical Therapy Treatment Plan Bed Mobility Training,Transfer Training,Gait Training, Therapeutic Exercise,Balance Retraining,Discharge Planning, Hot or Cold Pack,Neuromuscular Re-ed,Coordination Retraining Other Recommendations and Next Treatment stair climbing Focus Precautions Shoulder Precautions Sling Other Precautions L shoulder: Ok to come out of sling for hygiene; ok to come out of the sling to extend the elbow, wrist, hand; No active or passive range of motion on L shoulder; NWB on LUE Recommendations To Nursing Amount of Assist Needed Standby Assistance Discharge Recommendations PT Discharge Recommendations Home with Assistance, Outpatient PT Transportation Needs at Discharge Private Vehicle
[2020-11-18 12:00] VITALS: BP 156/61; PULSE 69; RESP 20; TEMP 36.7; O2SAT 96
[2020-11-18] MEDS: INSULIN ASPART 100 UNIT/ML INSULN PEN SUBCUT ×2 (12:08→17:07)
--- NOTE | 2020-11-18 12:15 | DI.ECHO.S_ITS ---
[facility] +---------+ : : [address] : [address] [address] : : : : [id number] : : : : Phone: [phone]---------+ Echocardiogram Report + + :Name: GABRIELA CHANDLER Study Date: 11/18/2020 Height: 62 in : :[facility] ReadingLocation: Weight: 213 lb : : Gender: Female BSA: 2.0 m2 : :: 1945 Age: 75 yrs BP: 177/70 mmHg: :Reason For Study: R/O EMBOLIC FOCUS : :Ordering Physician: WALESKA, : :NAWAF Performed By: Fernanda Yung : :Referring: NAWAF GALEANO : + + Interpretation Summary Left ventricular systolic function is normal with an estimated ejection fraction of 65 to 70% without any focal wall motion abnormality. Left ventricular size and wall thickness appear normal. Diastolic function is likely normal with normal filling pressures. The right ventricle appears normal in size and systolic function. There is a suggestion of severe pulmonary hypertension with an estimated right ventricular systolic pressure of 73 mmHg with a CVP of 8 mmHg, although the Doppler envelope is weak with marginal imaging and thus reducing the reliability of this measurement somewhat. Clinical correlation is recommended. The left atrium is mildly enlarged while right atrial size is normal. There is no significant valvular abnormality. Procedure: A two-dimensional transthoracic echocardiogram with color flow and Doppler was performed. The study quality was technically difficult. There is no prior echocardiogram noted for this patient. The patient was in sinus rhythm with heart rates between 61-75 bpm during the exam. Left Ventricle: The left ventricle appears normal in size, wall thickness, and systolic function without any focal wall motion abnormalities. The ejection fraction is estimated to be 65-70%. Diastolic parameters suggest probable normal left ventricular diastolic function and normal filling pressures. Right Ventricle: The right ventricle is normal in size and function. Atria: The left atrium is mildly dilated. Right atrial size is normal. There is no Doppler evidence for an interatrial shunt. Mitral Valve: There is mild mitral annular calcification. The mitral valve leaflets appear mildly thickened, but open well. There is trace mitral regurgitation. Aortic Valve: The aortic valve is trileaflet. The aortic valve is slightly calcified. The aortic valve opens well. There is no aortic valve stenosis. No aortic regurgitation is present. Tricuspid Valve: The tricuspid valve is normal in structure and function. There is trace tricuspid regurgitation. The right ventricular systolic pressure is estimated to be at least 73 mmHg based on an estimated right atrial pressure of 8 mm Hg. There is severe pulmonary hypertension. Pulmonic Valve: The pulmonic valve is not well seen, but is grossly normal. There is no pulmonic valvular regurgitation. Great Vessels: The aortic root is normal size. The dimensions of the ascending aorta are normal. The IVC is dilated (diameter is greater than 2.1 cm) yet it collapses greater than 50% with a sniff. This suggests a right atrial pressure of 8 mm Hg. Pericardium/ Pleura There is no pericardial effusion. There is no pleural effusion. MMode/2D Measurements & Calculations LVIDd: 4.6 cm LVOT diam: 2.2 cm LVIDs: 2.8 cm Ao root diam: 3.2 cm FS: 40.1 % asc Aorta Diam: 2.9 cm EPSS: 0.17 cm Ao Arch Diam (Prox Trans): 3.5 cm IVSd: 1.1 cm LVPWd: 0.93 cm LV zurita. diameter/BSA (cm/m^2): 2.4 LV sys. diameter/BSA (cm/m^2): 1.4 LA A2 area: 21.7 cm2 RA long axis: 4.7 cm LA A4 area: 20.4 cm2 RA area: 14.0 cm2 LA length (vol): 5.2 cm RA vol: 35.5 ml LA vol: 72.4 ml RA : 18.1 ml/m2 LA vol index: 36.9 ml/m2 IVC diam: 2.1 cm RVD1 (basal): 2.4 cm TAPSE: 2.1 cm Doppler Measurements & Calculations Ao V2 max: 159.8 cm/sec LVOT Max Tommie: 118.3 cm/sec Ao V2 mean: 106.2 cm/sec LV V1 max P.6 mmHg Ao max P.2 mmHg LV V1 VTI: 29.5 cm Ao mean P.3 mmHg TAY(I,D): 3.1 cm2 Ao V2 VTI: 36.4 cm TAY(V,D): 2.9 cm2 sev ratio: 0.81 TAY indexed to BSA (cm^2/m^2): 1.6 MV E max tommie: 103.9 cm/sec TR max tommie: 404.5 cm/sec MV A max tommie: 112.5 cm/sec TR max P.5 mmHg MV E/A: 0.92 PA V2 max: 104.6 cm/sec Med Peak E' Tommie: 8.1 cm/sec PA V2 mean: 74.2 cm/sec E/E' med: 12.8 PA mean P.4 mmHg Lat Peak E' Tommie: 8.3 cm/sec PA pr(Accel): 36.2 mmHg E/E' lat: 12.5 E/e' average: 12.7 MV dec time: 0.23 sec SV(LVOT): 114.0 ml Reading Physician:03:11 PM
--- NOTE | 2020-11-18 13:37 | PC.NURSE ---
Assess- Patient is doing well... She is having her echo done now and will then be discharged home. She has been discharged by ortho and will have a follow up appt in two weeks. Patient has scabs on her legs and arms that she constantly is picky at. They bleed and the she is cleaned up by staff and she repeats the process. Tried to explain to her that this can be an infection issue but patient does not really want to hear it. She also was given ativan orally prior to her MRI and was unable to do it.
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
--- NOTE | 2020-11-18 13:55 | CM.DPNOTE ---
Addendum entered by Christianne Busch 11/18/20 15:39: Received a call back from [facility] at approx 1545 and the home health team is moving some things to accommodate this patient for tomorrow. She said they will be able to see this patient. She said she needed Face to Face which Brianne was going to fax to her again. Christianne Busch CM Asst. Original Note: Sent referral packet to [facility] and received fax confirmation on 11/18/20 per Brianne. Received fax confirmation. Followed up with [facility] and she will ask her team if they are able to see pt. 11/19/20. She will give me a call back later today. Christianne Busch CM Asst.
--- NOTE | 2020-11-18 14:14 | CM.DANOTE ---
Addendum entered by Brianne Narayan LPN 11/18/20 14:41: DC orders now in place. Faxed Face/Face document, HH orders and dc summary to [facility]. Original Note: Discharge Planning/Care Management DCP: assessment. Case received, EMR reviewed and met with pt after PT and OT worked with her (notes were not yet available). Introduced self and role. Pt is found sitting up in bedside chair. Sling is place on for Left shoulder fracture. States she did very well with therapy and wants to d/c to home. She says I was a mess yesterday. Today I feel so much better. Discussed HH services and she is very agreeable to same. She states her daughter Mikayla will be picking her up at d/c. Spoke then with Dr. Bahena who states pt is stable for d/c today. Admissions status: OBS: in review per RODGER Field Payer: [facility] Adv. Called Mikayla as she had initially told care team members that her mother needed a snf setting. Discussed case and improvement in pt today. She noted it has been so hard over the last few days that she was overwhelmed. She states she is relieved at the idea of HH services and is glad that her mother is improved. Agency choice list: discussed: no choice: vendor list: referral given to [facility]: RN/OT/PT/[employer] IN[employer]ER. [facility] has accepted and will try to have pt on the schedule for tomorrow as need is great. Dr. Bahena has completed Face/Face document. PARAG Faust is faxing the clinical packet to Alyssa. Dr. Bahena states she expects to complete the d/c orders later today. RODGER Russo is updated. CM Discharge Assessment Start: 11/18/20 14:08 Freq: Status: Active Protocol: Document 11/18/20 14:10 ITV (Rec: 11/18/20 14:14 ITV [id number]) Discharge Planning Assessment Advance Directives? No History Provided By Patient,Family Member,Medical Record Prior Living Arrangements House Household Members family Comment lives in small home with her daughter Mikayla and 12 and 13 year old granddaughters. Confirmed they all live at the [place] address. Independent with ADL's No: declined since the fall and fracture a week ago Is patient alert and oriented? Yes
--- NOTE | 2020-11-18 14:30 | PM.PN.1 ---
Subjective Subjective Date Patient Seen: 11/18/20 Time Patient Seen: 14:30 Interval history: 75-year-old female seen resting comfortably in bed with left shoulder sling. She just completed a echocardiogram. The patient denies any concerning surgically related issues overnight. She is able to move her distal left upper extremity without difficulty and denies any loss of sensation. Exam Vital Signs (past 8 hours): - 11/18/20 07:30 11/18/20 12:00 Temperature 98.9 F 98.1 F Pulse Rate 64 69 Respiratory Rate 22 20 Blood Pressure 158/70 H 156/61 H Pulse Oximetry 94 96 Oxygen Delivery Method Room Air Oxygen Flow Rate 0 Narrative Exam Narrative: Female 75 years-old seen resting comfortably in sling no apparent distress, alert and oriented x3. Regular heart rate and inspiratory effort. Ecchymosis of the left deltoid region is present. There is appropriate tenderness to palpation. Distal affected LUE is neurovascularly intact with no signs or symptoms of DVT in BLE. Objective Labs Result Diagrams: 11/18/20 04:35 11/18/20 04:35 Labs: Laboratory Results - last 24 hr 11/17/20 11/17/20 11/17/20 15:38 15:38 15:38 WBC 14.1 H RBC 3.73 L Hgb 10.7 L Hct 32.8 L MCV 88.0 MCH 28.7 MCHC 32.6 RDW 15.4 H Plt Count 390 Neut % (Auto) 66.6 Lymph % (Auto) 21.4 L [place] % (Auto) 7.3 Eos % (Auto) 3.7 Baso % (Auto) 1.0 Neut # (Auto) 9400 H Lymph # (Auto) 3000 [place] # (Auto) 1000 H Eos # (Auto) 500 H Baso # (Auto) 100 ESR PT INR APTT Sodium 128 L Potassium 4.2 Chloride 94 L Carbon Dioxide 28 BUN 80 H Creatinine 2.09 H Estimated GFR 23.0 L BUN/Creatinine Ratio 38.3 H Glucose 37 L* Hemoglobin A1c Lactate Calcium 9.2 Magnesium Total Bilirubin 0.9 AST 33 ALT 22 Alkaline Phosphatase 86 Total Creatine Kinase < 20 L CK-MB (CK-2) TNP CK-MB (CK-2) Rel Index TNP Troponin I < 0.012 Total Protein 7.0 Albumin 3.8 Globulin 3.2 Albumin/Globulin Ratio 1.2 Triglycerides Cholesterol LDL Cholesterol, Calc HDL Cholesterol Procalcitonin TSH Free T4 SARS-CoV-2 (PCR) Negative 11/17/20 11/17/20 11/17/20 15:38 15:38 15:38 WBC RBC Hgb Hct MCV MCH MCHC RDW Plt Count Neut % (Auto) Lymph % (Auto) [place] % (Auto) Eos % (Auto) Baso % (Auto) Neut # (Auto) Lymph # (Auto) [place] # (Auto) Eos # (Auto) Baso # (Auto) ESR PT 11.2 INR 1.0 APTT 54 H Sodium Potassium Chloride Carbon Dioxide BUN Creatinine Estimated GFR BUN/Creatinine Ratio Glucose Hemoglobin A1c Lactate Calcium Magnesium 3.2 H Total Bilirubin AST ALT Alkaline Phosphatase Total Creatine Kinase CK-MB (CK-2) CK-MB (CK-2) Rel Index Troponin I Total Protein Albumin Globulin Albumin/Globulin Ratio Triglycerides Cholesterol LDL Cholesterol, Calc HDL Cholesterol Procalcitonin 0.12 TSH Free T4 SARS-CoV-2 (PCR) 11/17/20 11/17/20 11/17/20 15:38 15:38 18:38 WBC RBC Hgb Hct MCV MCH MCHC RDW Plt Count Neut % (Auto) Lymph % (Auto) [place] % (Auto) Eos % (Auto) Baso % (Auto) Neut # (Auto) Lymph # (Auto) [place] # (Auto) Eos # (Auto) Baso # (Auto) ESR PT INR APTT Sodium Potassium Chloride Carbon Dioxide BUN Creatinine Estimated GFR BUN/Creatinine Ratio Glucose Hemoglobin A1c 6.3 H Lactate 0.6 L Calcium Magnesium Total Bilirubin AST ALT Alkaline Phosphatase Total Creatine Kinase CK-MB (CK-2) CK-MB (CK-2) Rel Index Troponin I Total Protein Albumin Globulin Albumin/Globulin Ratio Triglycerides 149 Cholesterol 142 LDL Cholesterol, Calc 53 HDL Cholesterol 59 Procalcitonin TSH Free T4 SARS-CoV-2 (PCR) 11/18/20 11/18/20 11/18/20 04:35 04:35 04:35 WBC 12.5 H RBC 3.38 L Hgb 9.8 L Hct 29.8 L MCV 88.3 MCH 29.1 MCHC 32.9 RDW 15.8 H Plt Count 330 Neut % (Auto) 61.2 Lymph % (Auto) 27.3 [place] % (Auto) 7.6 Eos % (Auto) 3.3 Baso % (Auto) 0.6 Neut # (Auto) 7700 H Lymph # (Auto) 3400 [place] # (Auto) 1000 H Eos # (Auto) 400 Baso # (Auto) 100 ESR PT 11.5 INR 1.0 APTT Sodium 130 L Potassium 4.8 Chloride 97 L Carbon Dioxide 32 BUN 70 H Creatinine 1.75 H Estimated GFR 28.3 L BUN/Creatinine Ratio 40.0 H Glucose 136 H Hemoglobin A1c Lactate Calcium 8.5 Magnesium Total Bilirubin 0.7 AST 24 ALT 20 Alkaline Phosphatase 89 Total Creatine Kinase CK-MB (CK-2) CK-MB (CK-2) Rel Index Troponin I Total Protein 5.7 L Albumin 3.1 L Globulin 2.6 Albumin/Globulin Ratio 1.2 Triglycerides Cholesterol LDL Cholesterol, Calc HDL Cholesterol Procalcitonin TSH Free T4 SARS-CoV-2 (PCR) 11/18/20 11/18/20 11/18/20 04:35 04:35 04:35 WBC RBC Hgb Hct MCV MCH MCHC RDW Plt Count Neut % (Auto) Lymph % (Auto) [place] % (Auto) Eos % (Auto) Baso % (Auto) Neut # (Auto) Lymph # (Auto) [place] # (Auto) Eos # (Auto) Baso # (Auto) ESR 72 H PT INR APTT Sodium Potassium Chloride Carbon Dioxide BUN Creatinine Estimated GFR BUN/Creatinine Ratio Glucose Hemoglobin A1c 6.2 H Lactate Calcium Magnesium Total Bilirubin AST ALT Alkaline Phosphatase Total Creatine Kinase CK-MB (CK-2) CK-MB (CK-2) Rel Index Troponin I Total Protein Albumin Globulin Albumin/Globulin Ratio Triglycerides Cholesterol LDL Cholesterol, Calc HDL Cholesterol Procalcitonin TSH 0.18 L Free T4 1.37 SARS-CoV-2 (PCR) [facility] Medical History COPD exacerbation Diabetes Surgical History (Updated 11/18/20 @ 00:48 by JASVIR Stevens) H/O shoulder surgery History of knee surgery Family History Mother Cancer Stroke Father Diabetes mellitus Cancer History of coronary artery bypass graft Sister Hypertension Cancer Social History household members: family Smoking Status: Former smoker Assessment & Plan Assessment & Plan narrative: 2 part proximal humerus fracture left shoulder -recommending non operative treatment - sling at all times -okay to come out of the sling for hygiene -okay to come out of the sling to extend the elbow wrist and hand. - nonweightbearing left upper extremity - no active or passive range of motion of the shoulder - follow-up with Orthopedics (Dr. Hogan) in 2 weeks -orthopedic surgery will sign off
--- NOTE | 2020-11-18 19:33 | PC.NURSE ---
Discharge Note Patient A&O, VSS, RA. no complaints of pain or discomfort. NIH 5 due to left arm disability, no new neuro changes this shift and within patient baseline. Discharge information reviewed with patient and daughter by this RN. Reminded to citrus picker new prescriptions on way home, patient agreeable. PIV/Tele discontinued. All belongings packed and given to patient and daughter along with discharge packet. Patient taken down via wheelchair to V.
== END 2020-11-18 18:50 | disposition home or self-care (01) ==
LOC: ED 17:06 → AC 17:09
PROVIDERS: Nurse Practitioner Family; Admitting Provider Internal Medicine; Emergency Provider Emergency Medicine; PCP Physician Assistant; Referring Provider Emergency Medicine; Visit Provider Internal Medicine
DX: S42.292A Other displaced fracture of upper end of left humerus, initial encounter for closed fracture (principal); E11.649 Type 2 diabetes mellitus with hypoglycemia without coma; I10 Essential (primary) hypertension; K21.9 Gastro-esophageal reflux disease without esophagitis; J44.9 Chronic obstructive pulmonary disease, unspecified; N17.9 Acute kidney failure, unspecified; W18.30XA Fall on same level, unspecified, initial encounter; R06.02 Shortness of breath; R47.1 Dysarthria and anarthria; R29.810 Facial weakness; E78.5 Hyperlipidemia, unspecified; F32.9 Major depressive disorder, single episode, unspecified; F41.9 Anxiety disorder, unspecified; E66.01 Morbid (severe) obesity due to excess calories; Z68.39 Body mass index [BMI] 39.0-39.9, adult; Z79.4 Long term (current) use of insulin; Z20.822 Contact with and (suspected) exposure to COVID-19
CPT/HCPCS: 36415; 70450; 71045; 73030; 80053; 80061; 82550; 82962; 83036; 83605; 83735; 84145; 84439; 84443; 84484; 85025; 85610; 85651; 85730; 87040; 87635; 93005; 93306; 94760; 94762; 96361; 96372; 96374; 96375; 97161; 97165; 97530; 97535; 99284; G0378; A9270